=== PATIENT | male | born 1995 | race Caucasian/White ===

== ENCOUNTER 2019-10-23 11:42 | Emergency (ER) | payer OTHER, SELFPAY ==
[2019-10-23 11:54] VITALS: BP 150/88; PULSE 99; RESP 18; TEMP 36.6; O2SAT 97; BMI 3710.2
--- NOTE | 2019-10-23 12:04 | XRR_ITS ---
PROCEDURE INFORMATION: Exam: XR Chest, 1 View Exam date and time: 10/23/2019 12:25 PM Age: 24 years old Clinical indication: Shortness of breath; Additional info: SOB TECHNIQUE: Imaging protocol: XR of the chest Views: 1 view. COMPARISON: CT chest w con* [id number] 09/17/2018 8:46 AM FINDINGS: Lungs: Hyperinflation without acute airspace disease. Pleural space: No pleural effusion. Heart/Mediastinum: No cardiomegaly. Bones/joints: Unremarkable. XR/XR chest 1V portable [id number] IMPRESSION: No acute airspace or pleural disease.
--- NOTE | 2019-10-23 12:05 | ED_ITS ---
HPI - General Adult General: Chief complaint: Shortness of Breath/Dyspnea Stated complaint: SOB AND HAS HAD FEVER Time Seen by Provider: 10/23/19 11:51 History of Present Illness: HPI narrative: Presents with same day just did not feel good. Said he has had some nausea vomiting and chills. Denies fever does have some muscle aches. Says he felt like he has some shortness of breath. No known cold exposure. Patient is a known opiate abuser and states that he has been abusing opiates plus substance that is herb called Stanley I believe that gives opiate like effects. Patient has been in and out of rehab. Denies other problems. Patient states he wants tested for STD denies having unprotected sex but he said he has had sex with people who has had STDs in the past denies any IV drug usage. Patient denies any homicidal or suicidal ideations denies d epression Onset (ago): day(s) Associated symptoms: Reports dyspnea, malaise, nausea and vomiting; Deny chest pain, headache(s) or rash Review of Systems Const: Reports: malaise Eyes: Denies: change in vision or blurry vision ENMT: Denies: throat pain or nasal congestion Card: Denies: chest pain or dyspnea on exertion Resp: Reports: dyspnea GI: Reports: nausea and vomiting : Denies: difficulty urinating Musc: Denies: extremity pain Skin/Breast: Denies: rash Neuro: Denies: headache(s) Psych: Denies: anxiety or depression Emiliano/Lymph: Denies: easy bruising Physical Exam Const: COMMON NORMALS: no acute distress, average body habitus and patient oriented x3 HENMT: COMMON NORMALS: normocephalic HEAD & SCALP: normal to inspection and normocephalic FACE & SINUS: normal facial exam Eye: COMMON NORMALS: conjunctivae normal GENERAL EYE: appearance normal, both eyes and all related structures CONJUNCTIVA: Yes conjunctivae normal Neck/C-Spine: COMMON NORMALS: no JVD Chest: COMMONS NORMALS: normal inspection of the chest Resp: COMMON NORMALS: normal respiratory effort and clear to auscultation bilaterally AUSCULTATION: clear to auscultation bilaterally Cardio: COMMON NORMALS: no JVD, regular rate and regular rhythm RATE: regular rate RHYTHM: regular rhythm GI: COMMON NORMALS: Normal to inspection, nondistended, normoactive bowel sounds present Extremity: COMMON NORMALS: normal to inspection and full ROM Neuro: COMMON NORMALS: patient oriented x3 Course Vital Signs: Vital signs: Vital Signs Temperature 97.9 F 10/23/19 11:54 Pulse Rate 101 H 10/23/19 13:07 Respiratory Rate 14 10/23/19 13:07 Blood Pressure 126/73 10/23/19 13:07 Pulse Oximetry 100 10/23/19 13:07 MDM - General Adult MDM Narrative: Medical decision making narrative: I spent a long time in room talking with patient and the mother both. Mother is wanting patient going to rehab or detox facility patient adamantly refuses at this point. Mom states that she wants him to have some help. I tried to facilitate him wanting going to go to treatment facility but he denies any admission anywhere presently. Said he is going home and and will take his herbal thing which helps relieve the withdrawal symptoms from the opiates. Patient aware that he needs to drink plenty of fluids and get rehydrated and stay off opiates seek help again patient denies any homicidal or suicidal ideations. Offered to help in what assistance I had available to me Lab Data: Labs: Lab Results 10/23/19 10/23/19 Range/Units 12:15 12:15 WBC 14.6 H (4.0-10.0) 10^3/ uL RBC 5.57 H (4.1-5.3) 10^6/u L Hgb 16.4 (11.7-16.6) g/dL Hct 48.5 (42.0-52.0) % MCV 87.1 (80-94) fL MCH 29.4 (28.0-34.0) pg MCHC 33.8 (30.0-36.0) g/dL RDW 12.1 (12.1-15.1) % Plt Count 310 (130-400) 10^3/c mm MPV 9.3 (7.4-10.4) fL Neut % (Auto) 89.4 % Lymph % (Auto) 3.2 % [place] % (Auto) 6.9 % Eos % (Auto) 0.0 % Baso % (Auto) 0.1 % Neut # (Auto) 13.04 H (1.8-7.7) 10^3/u L Lymph # (Auto) 0.5 L (0.8-4.8) 10^3/u L [place] # (Auto) 1.0 H (0.2-0.9) 10^3/u L Eos # (Auto) 0.0 (0.0-0.8) 10^3/u L Baso # (Auto) 0.0 (0.0-0.1) 10^3/u L Nucleated RBC % (a uto) 0 % Nucleated RBCs # 0.0 /100WBC Sodium 140 (136-145) mmol/L Potassium 4.1 (3.5-5.1) mmol/L Chloride 103 (98-107) mmol/L Carbon Dioxide 22 (22-29) mmol/L Anion Gap 19.1 H (5-19) BUN 13 (6-20) mg/dL Creatinine 0.8 (0.7-1.2) mg/dL GFR Calculation 119.8 (90-130) mL/min Glucose 162 H (65-115) mg/dL Calculated Osmolal ity 290 (285-295) mOsm/k g Calcium 8.4 L (8.5-10.5) mg/dL Total Bilirubin 0.5 (0.15-1.2) mg/dL AST 13 (0-40) U/L ALT 14 (0-41) U/L Alkaline Phosphata se 67 (40-130) IU/L Total Protein 7.4 (6.6-8.7) g/dL Albumin 4.4 (3.5-5.2) g/dL Globulin 3.0 (1.3-4.6) g/dL Discharge Plan Discharge Patient Disposition: Home Clinical Impression: Gastroenteritis, Opiate abuse, continuous, Abuse of herbal medicine Condition: Stable Prescriptions: New Zofran 4 mg tablet 4 mg PO Q8H PRN (Reason: nausea and vomiting) 2 Days Qty: 4 RF: 0 Discharge Orders: Discharge Order (Routine); Ordered 10/23/19 Ordered By: Isac Soni Discharge Diet: Usual diet Discharge Activity: Increase activity as tolerated Patient Instructions: Gastroenteritis (ED), Polysubstance Abuse (ED) Activity Restrictions/Additional Instructions: Follow-up with medical provider as directed. Take medications as prescribed. Return to the ER or your medical provider if condition worsens. Please read and understand discharge instructions. If any questions ask please. Follow back up medical clinic of choice if symptoms persist. Think about going back to rehab for opiate abuse. Rehydrate drink plenty of fluids. Coding Level of Care Code ED Campaign Consultant for Kristopher Fwtosha Exam Comprehensive
[2019-10-23 12:22] LABS: Basophils % 0.1 %; Hematocrit 48.5 % (42.0-52.0); Hemoglobin 16.4 g/dL (11.7-16.6); Lymphocytes # 0.5 10^3/uL (0.8-4.8); Lymphocytes % 3.2 %; Mean Corpuscular HGB Conc 33.8 g/dL (30.0-36.0); Mean Corpuscular Hemoglobin 29.4 pg (28.0-34.0); Mean Corpuscular Volume 87.1 fL (80-94); Mean Platelet Volume 9.3 fL (7.4-10.4); Monocytes % 6.9 %; Neutrophils # 13.04 10^3/uL (1.8-7.7); Neutrophils % 89.4 %; Nucleated Red Blood Cells % 0 %; Platelet Count 310 10^3/cmm (130-400); Red Blood Count 5.57 10^6/uL (4.1-5.3); Red Cell Distribution Width 12.1 % (12.1-15.1); White Blood Count 14.6 10^3/uL (4.0-10.0)
[2019-10-23 12:45] LABS: Alanine Aminotransferase 14 U/L (0-41); Albumin Level 4.4 g/dL (3.5-5.2); Alkaline Phosphatase 67 IU/L (40-130); Anion Gap 19.1 (5-19); Aspartate Amino Transferase 13 U/L (0-40); Blood Urea Nitrogen 13 mg/dL (6-20); Calcium 8.4 mg/dL (8.5-10.5); Carbon Dioxide 22 mmol/L (22-29); Chloride 103 mmol/L (98-107); Glomerular Filtration Rate 119.8 mL/min (90-130); Glucose 162 mg/dL (65-115); Osmolality Calculated 290 mOsm/kg (285-295); Potassium 4.1 mmol/L (3.5-5.1); Sodium 140 mmol/L (136-145); Total Bilirubin 0.5 mg/dL (0.15-1.2); Total Protein 7.4 g/dL (6.6-8.7)
[2019-10-23 12:48] VITALS: BP 143/79; PULSE 88; RESP 14; O2SAT 96
[2019-10-23 13:07] VITALS: BP 126/73; PULSE 101; RESP 14; O2SAT 100
[2019-10-23] MEDS: ondansetron 4 MG Tablet PO (13:50)
[2019-10-23 14:00] LABS: Add Urine Microscopic? NO
[2019-10-23 14:07] LABS: Urine Appearance Clear (CLEAR); Urine Color Yellow (Yellow); pH Urine 5 (5-7)
[2019-10-23 14:08] LABS: Bilirubin Urine 1+ (NEGATIVE); Blood Urine Neg (Negative); Glucose Urine UA Norm (Normal); Ketones Urine 1+ (Negative); Leukocyte Esterase Urine Negative (Negative); Nitrate Urine Negative (Negative); Protein Urine Neg (Negative); Urobilinogen Urine Neg (Negative)
[2019-10-23 14:15] VITALS: BP 124/64; PULSE 97; RESP 14; O2SAT 99
[2019-10-24 15:47] LABS: Quest SARS-CoV-2 RNA NOT DETECTED (NOT DETECTED)
--- NOTE | 2019-10-24 16:12 | PC.NURSE ---
Pt called and notified of negative COVID test.
== END 2019-10-23 14:17 | disposition home or self-care (01) ==
PROVIDERS: Emergency Provider Nurse Practitioner Family
DX: K52.9 Noninfective gastroenteritis and colitis, unspecified (principal); F11.10 Opioid abuse, uncomplicated; F55.1 Abuse of herbal or folk remedies
CPT/HCPCS: 12345; 36415; 71045; 80053; 81003; 85025; 87491; 87591; 87635; 99282; 99283; Q0162

== ENCOUNTER 2020-10-01 13:06 | Emergency (ER) | payer SELFPAY ==
[2020-10-01 13:09] VITALS: BP 129/83; PULSE 75; RESP 18; TEMP 36.4; O2SAT 94; BMI 25.7
--- NOTE | 2020-10-01 13:21 | PC.NURSE ---
pt states 'hes an idiot'
--- NOTE | 2020-10-01 13:33 | W.ED.EYEPROB ---
HPI - Eye Problem General: Chief complaint: Eye Problems Stated complaint: FB IN RIGHT EYE Time Seen by Provider: 10/01/20 13:09 History of Present Illness: HPI Narrative: Patient thinks contact might be in right eye still. Patient says he just feels funky today. Says I was fine yesterday. chief complaint: eye pain and eye redness Onset (ago): hour(s) Onset description: sudden Duration: constant and progressively worsening Location: right eye Eye Symptoms: burning, redness, discharge and photophobia Associated symptoms: Reports no associated symptoms; Denies fever(s), headache(s), nausea or vomiting Treatments Prior to Arrival: none Review of Systems Const: Denies: fever(s), chills or body aches Eyes: Reports: photophobia, eye discomfort, eye discharge and eye redness; Denies: change in vision or blurry vision ENMT: Denies: throat pain or nasal congestion Card: Denies: chest pain or dyspnea on exertion Resp: Denies: dyspnea, productive cough or non-productive cough GI: Denies: abdominal pain, nausea or vomiting : Denies: difficulty urinating Musc: Denies: extremity pain Skin/Breast: Denies: rash Neuro: Denies: headache(s) Psych: Denies: anxiety or depression Emiliano/Lymph: Denies: easy bruising PFSH ED PFSH: Social History (Updated 05/02/20 @ 16:34 by Kenia Spangler LPN) Smoking and tobacco status: never smoked Physical Exam Const: GENERAL APPEARANCE: cooperative Eye: CONJUNCTIVA: Yes conjunctival abnormal positive right conjunctival injection SCLERA: scleral abnormal Laterality of scleral abnormality: positive right scleral injection CORNEA: Yes other (Swelling about the cornea) DIRECT OPHTHALMOSCOPY: Yes photophobia Neck/C-Spine: COMMON NORMALS: full ROM Cardio: COMMON NORMALS: regular rate and regular rhythm RATE: regular rate RHYTHM: regular rhythm Psych: COMMON NORMALS: mental status grossly normal Course Vital Signs: Vital signs: Vital Signs Temperature 97.6 F 10/01/20 13:09 Pulse Rate 75 10/01/20 13:09 Respiratory Rate 18 10/01/20 13:09 Blood Pressure 129/83 10/01/20 13:09 Pulse Oximetry 94 10/01/20 13:09 Discharge Plan Discharge Patient Disposition: Home Clinical Impression: Bacterial conjunctivitis Condition: Stable Prescriptions: New gentamicin 0.3 % (3 mg/gram) ointment 1 applic ophthalmic (eye) TID 5 Days Qty: 3.5 RF: 0 No Action ondansetron 4 mg tablet,disintegrating 4 mg PO Q8H PRN (Reason: nausea and vomiting) Qty: 10 RF: 0 Discharge Orders: Discharge ED (Routine); Ordered 10/01/20 Ordered By: Isac Soni Discharge Diet: Usual diet Discharge Activity: Resume usual activity Patient Instructions: Conjunctivitis (ED) Activity Restrictions/Additional Instructions: Use medicine as directed. Follow-up with eye doctor tomorrow if no significant improvement. Make sure you get rid of your contact solution and get a new case change out contacts. Coding Level of Care Code ED Regulatory Services Consultant for Kristopher Singer
[2020-10-01 14:08] VITALS: BP 126/61; PULSE 76; RESP 18
== END 2020-10-01 14:00 | disposition home or self-care (01) ==
PROVIDERS: Emergency Provider Nurse Practitioner Family
DX: H10.9 Unspecified conjunctivitis (principal)
CPT/HCPCS: 99281

== ENCOUNTER 2022-09-10 14:10 | Emergency (ER) | payer SELFPAY ==
[2022-09-10] VITALS (12 sets, daily range): BP systolic 124–146; BP diastolic 66–94; PULSE 73–95; RESP 16; TEMP 37.4; O2SAT 91–98; BMI 24.4
--- NOTE | 2022-09-10 15:11 | ED_ITS ---
HPI - Neck Pain/Injury General: Chief Complaint: Neck Pain/Injury Stated Complaint: SOB Stiff body Time Seen by Provider: 09/10/22 14:57 History of Present Illness: 27-year-old male brought to emergency room by dad due to sore throat, drooling and chills for the past 2 days. Described the pain as throbbing sensation with severity of 8 out of 10 mostly around the throat. Has any sick contacts or recent foreign travel. Patient unable to drink or eat within the past 2 days due to pain. Denies any cough, coughing up blood or vomiting. No known sick contacts or recent foreign travel. Review of Systems General: Reports: 10 or more systems reviewed and unremarkable except in HPI and below Const: Reports: fever(s) and chills ENMT: Reports: uvular edema, enlarged tonsils and odynophagia; Denies: swelling of lips/tongue, dental pain, nasal obstruction, epistaxis or post nasal drip Resp: Denies: dyspnea, productive cough, non-productive cough, wheezing, stridor, pain on inspiration or chest congestion All/Imm: Denies: urticaria, throat swelling, tongue swelling, facial swelling, seasonal rhinorrhea or food intolerance PFSH ED PFSH: Social History (Updated 05/02/20 @ 16:34 by Kenia Spangler LPN) Smoking and tobacco status: never smoked Substance/Drug Use: current Physical Exam HENMT: COMMON NORMALS: normocephalic and atraumatic HEAD & SCALP: normal to inspection, normocephalic and atraumatic; no abrasion MOUTH: tongue normal, drooling, malodorous breath, muffled voice and Abnormal oral and palatal mucosa present; no trismus and no restricted motion THROAT: uvula midline, abnormal tonsil, posterior oropharynx abnormal and uvular edema; no postnasal drainage Neck/C-Spine: COMMON NORMALS: full ROM, no lymphadenopathy, supple, no meni ngeal signs, no JVD, Thyroid normal and No carotid bruits GENERAL: Yes normal visual inspection THYROID: Thyroid normal Lymph: LYMPHATIC: no lymphadenopathy noted Chest: COMMONS NORMALS: normal inspection of the chest, normal palpation of entire chest wall, normal inspection of the breasts and normal palpation of the breasts Breast/axilla inspection: Yes normal inspection of the breasts BREAST/AXILLA PALPATION: Yes normal palpation of the breasts Resp: COMMON NORMALS: normal respiratory effort, No retractions, No use of accessory muscles, clear to auscultation bilaterally and percussion normal AUSCULTATION: clear to auscultation bilaterally PERCUSSION: percussion normal Cardio: COMMON NORMALS: no JVD, regular rate, regular rhythm, S1 normal heart sound present, S2 normal heart sound present, No gallops present (Cardio), No clicks present (Cardio), No murmurs present (Cardio), No rub (Cardio) and Peripheral pulses 2+ throughout RATE: regular rate RHYTHM: regular rhythm HEART SOUNDS: S1 normal heart sound present and S2 normal heart sound present PERIPHERAL PULSES: Peripheral pulses 2+ throughout GI: COMMON NORMALS: Normal to inspection, nondistended, normoactive bowel sounds present, Soft to palpation, non-tender, No hepatosplenomegaly present, no masses and no bruits PALPATION: Yes Soft to palpation and Yes No h epatosplenomegaly present Neuro: MENINGEAL SIGNS: Yes no meningeal signs Skin: COMMON NORMALS: no rashes or lesions noted, no wounds, turgor normal, no jaundice, no petechiae and no mottling GENERAL SKIN EXAM: no rashes or lesions noted and turgor normal Course Reevaluation(s): Reevaluation #3: Upon reassessment patient appears to be comfortable without any acute distress. Patient's voice did improve slightly. And is currently not drooling. Patient with stable vitals. Consultations: Consultation #1: Called me to [facility] in [place]. I spoke with transfer center team and told me she will connect with the ENT. Consultation #2: 5:40 PM discussed patient with ER doctor for ER to ER transfer. Consultation #3: Discussed CT finding with the radiologist Vital Signs: Vital signs: Vital Signs Temperature 99.4 F 09/10/22 14:14 Pulse Rate 80 09/10/22 20:00 Respiratory Rate 16 09/10/22 20:00 Blood Pressure 129/83 09/10/22 20:00 Pulse Oximetry 93 09/10/22 20:00 Oxygen Delivery Me thod Room Air 09/10/22 18:30 MDM - Neck Pain/Injury Medical Decision Making Made comfortable emergency room. Patient immediately had blood work done including CBC, CMP, CT scan. She was given IV fluid, IV antibiotics and IV emilia roid. Given IV pain medication as well. Was CT finding with patient and father at bedside. Jose Rafael patient with physician at [facility] in [place]. Remained stable emergency room no acute distress. Differential Diagnosis Likely strain of neck muscle (Tonsillitis, peritonsillar abscess, pharyngitis, uveitis ) Lab Data 09/10/22 15:51 09/10/22 15:[address] 09/10/22 15:11 IMPRESSION: 1. Ill-defined abscess involves the right oropharyngeal and right peritonsillar soft tissues in this patient with a history of prior tonsillectomy. There is adjacent soft tissue cellulitis. 2. Complex fluid density is present in the retropharyngeal soft tissue concerning for retropharyngeal abscess. ADDENDUM: 09/10/22 [id number] CRITICAL RESULT: The study was personally discussed on the telephone with KIRIT Sarkar on 09/10/2022 4:52 PM CDT. The results were understood and acknowledged. Laboratory Results WBC 17.6 10^3/uL (4.0-10.0) H 09/10/22 15:51 RBC 5.67 10^6/uL (4.1-5.3) H 09/10/22 15:51 Hgb 16.3 g/dL (11.7-16.6) 09/10/22 15:51 Hct 48.3 % (42.0-52.0) 09/10/22 15:51 MCV 85.2 fl (80-94) 09/10/22 15:51 MCH 28.7 pg (28.0-34.0) 09/10/22 15:51 MCHC 33.7 g/dL (30.0-36.0) 09/10/22 15:51 RDW 12.1 % (12.1-15.1) 09/10/22 15:51 Plt Count 304 10^3/cmm (130-400) 09/10/22 15:51 MPV 9.9 fL (7.4-10.4) 09/10/22 15:51 Neut % (Auto) 84.3 % 09/10/22 15:51 Lymph % (Auto) 6.9 % 09/10/22 15:51 [place] % (Auto) 8.2 % 09/10/22 15:51 Eos % (Auto) 0.1 % 09/10/22 15:51 Baso % (Auto) 0.2 % 09/10/22 15:51 Neut # (Auto) 14.81 10^3/uL (1.8-7.7) H 09/10/22 15:51 Lymph # (Auto) 1.2 10^3/uL (0.8-4.8) 09/10/22 15:51 [place] # (Auto) 1.4 10^3/uL (0.2-0.9) H 09/10/22 15:51 Eos # (Auto) 0.0 10^3/uL (0.0-0.8) 09/10/22 15:51 Baso # (Auto) 0.0 10^3/uL (0.0-0.1) 09/10/22 15:51 Nucleated RBC % (auto) 0 % 09/10/22 15:51 Nucleated RBCs # 0.0 /100WBC 09/10/22 15:51 Sodium 134 mmol/L (136-145) L 09/10/22 15:51 Potassium 4.2 mmol/L (3.5-5.1) 09/10/22 15:51 Chloride 91 mmol/L (98-107) L 09/10/22 15:51 Carbon Dioxide 26 mmol/L (22-29) 09/10/22 15:51 Anion Gap 21.2 (5-19) H 09/10/22 15:51 BUN 8 mg/dL (6-20) 09/10/22 15:51 Creatinine 0.8 mg/dL (0.7-1.2) 09/10/22 15:51 GFR Calculation 116.9 mL/min (90-130) 09/10/22 15:51 Glucose 99 mg/dL (65-115) 09/10/22 15:51 Calculated Osmolality 276 mOsm/kg (285-295) L 09/10/22 15:51 Calcium 9.4 mg/dL (8.5-10.5) 09/10/22 15:51 Total Bilirubin 0.7 mg/dL (0.15-1.2) 09/10/22 15:51 AST 13 U/L (0-40) 09/10/22 15:51 ALT 8 U/L (0-41) 09/10/22 15:51 Alkaline Phosphatase 115 U/L (40-130) 09/10/22 15:51 Total Protein 8.2 g/dL (6.6-8.7) 09/10/22 15:51 Albumin 4.1 g/dL (3.5-5.2) 09/10/22 15:51 Globulin 4.1 g/dL (1.3-4.6) 09/10/22 15:51 Group A Strep Rapid Negative (Negative) 09/10/22 15:56 Critical Care Time Critical Care Time: Critical Care Time: Yes Total Critical Care Time: 45 Attestation: Time spent discussing patient with the radiologist, ER physician at the other hospital. When reviewing CAT scan and labs. Spent reevaluating patient on multiple episodes after medication and treatment. Spent discussing patient with family. Discharge Plan Discharge Patient Disposition: Transfer to ED Clinical Impression: Abscess, peritonsillar, Abscess, retropharyngeal, Leukocytosis Condition: Stable Prescriptions: No Action No Known Home Medications Referrals: Clinton Lennon MD [Primary Care Provider] - Coding Level of Care Code ED Automation Manager for Kristopher Singer
--- NOTE | 2022-09-10 15:11 | CTR_ITS ---
PROCEDURE INFORMATION: Exam: CT Neck With Contrast Exam date and time: 09/10/2022 4:03 PM Age: 27 years old Clinical indication: Abscess, tonsil; Throat pain; Prior surgery; Surgery date: 6+ months; Surgery type: Tonsillectomy age 13; Patient HX: Tonsillectomy @ age 13; Additional info: Tonsilarr abscess TECHNIQUE: Imaging protocol: Computed tomography of the neck with contrast. Radiation optimization: All CT scans at this facility use at least one of these dose optimization techniques: automated exposure control; mA and/or kV adjustment per patient size (includes targeted exams where dose is matched to clinical indication); or iterative reconstruction. Contrast material: OMNI 350; Contrast volume: 80 ml; Contrast route: INTRAVENOUS (IV); REPORTING DATA: Count of CT and Cardiac NM exams in prior 12 months: This patient has received 0 known CTs and 0 known cardiac nuclear medicine studies in the 12 months prior to the current study. COMPARISON: CT chest w con* [id number] 09/17/2018 8:46 AM RADIATION DOSE METRICS: Total DLP (mGy-cm): 290 FINDINGS: Pharynx: There is heterogeneous density in the right nasopharyngeal, oropharyngeal, and peritonsillar soft tissues in this patient with a history of prior tonsillectomy. An ill-defined peripherally enhancing collection consistent with abscess is present in the right oropharyngeal and peritonsillar soft tissues measuring 2.3 x 2.7 cm in AP/craniocaudad dimensions consistent with an abscess formation. There is edema in the adjacent soft tissues with basement of the adjacent fat planes. Larynx: Unremarkable. Epiglottis is normal. Prevertebral and retropharyngeal spaces: There is complex fluid density in the retropharyngeal soft tissues Salivary glands: Normal. Glands are normal in size. Thyroid: Normal. No enlarged or calcified nodules. Lymph nodes: Right level 2 through 6 lymphadenopathy. Trachea: Visualized trachea is unremarkable. Lungs: There are ground-glass opacities partially visualized at the right lung apex. Bones/joints: Unremarkable. No acute fracture. Soft tissues: See Pharynx finding. There is edema in the subcutaneous soft tissues of the cervical spine and upper thorax. CT/CT neck w con* [id number] IMPRESSION: 1. Ill-defined abscess involves the right oropharyngeal and right peritonsillar soft tissues in this patient with a history of prior tonsillectomy. There is adjacent soft tissue cellulitis. 2. Complex fluid density is present in the retropharyngeal soft tissue concerning for retropharyngeal abscess.
[2022-09-10] MEDS: sodium chloride 0.9% 1,000 ML 999 ML IV ×2 (15:49→17:19)
[2022-09-10] MEDS: dexamethasone 10 mg/mL INJ IVP (15:50)
[2022-09-10] MEDS: clindamycin 600 MG/50 ML PREMIX 100 MG IV ×2 (15:50→23:01)
[2022-09-10] MEDS: morphine 4 mg/mL SDV 1 mL IVP ×2 (15:50→23:00)
[2022-09-10] MEDS: ondansetron 2 mg/ML SDV 2 mL 4 MG IVP (15:50)
[2022-09-10 16:22] LABS: Basophils % 0.2 %; Eosinophils % 0.1 %; Hematocrit 48.3 % (42.0-52.0); Hemoglobin 16.3 g/dL (11.7-16.6); Lymphocytes # 1.2 10^3/uL (0.8-4.8); Lymphocytes % 6.9 %; Mean Corpuscular HGB Conc 33.7 g/dL (30.0-36.0); Mean Corpuscular Hemoglobin 28.7 pg (28.0-34.0); Mean Corpuscular Volume 85.2 fl (80-94); Mean Platelet Volume 9.9 fL (7.4-10.4); Monocytes # 1.4 10^3/uL (0.2-0.9); Monocytes % 8.2 %; Neutrophils # 14.81 10^3/uL (1.8-7.7); Neutrophils % 84.3 %; Nucleated Red Blood Cells % 0 %; Platelet Count 304 10^3/cmm (130-400); Red Blood Count 5.67 10^6/uL (4.1-5.3); Red Cell Distribution Width 12.1 % (12.1-15.1); White Blood Count 17.6 10^3/uL (4.0-10.0)
[2022-09-10 16:37] LABS: Rapid Strep A Test Negative (Negative)
[2022-09-10 16:43] LABS: Alanine Aminotransferase 8 U/L (0-41); Albumin Level 4.1 g/dL (3.5-5.2); Alkaline Phosphatase 115 U/L (40-130); Aspartate Amino Transferase 13 U/L (0-40); Blood Urea Nitrogen 8 mg/dL (6-20); Calcium 9.4 mg/dL (8.5-10.5); Carbon Dioxide 26 mmol/L (22-29); Chloride 91 mmol/L (98-107); Creatinine Clr Calc Pharmacy 156.7872; Globulin 4.1 g/dL (1.3-4.6); Glomerular Filtration Rate 116.9 mL/min (90-130); Glucose 99 mg/dL (65-115); Osmolality Calculated 276 mOsm/kg (285-295); Sodium 134 mmol/L (136-145); Total Bilirubin 0.7 mg/dL (0.15-1.2); Total Protein 8.2 g/dL (6.6-8.7)
[2022-09-10 16:59] LABS: Anion Gap 21.2 (5-19)
[2022-09-10 17:00] LABS: Potassium 4.2 mmol/L (3.5-5.1)
[2022-09-10] MEDS: HYDROmorphone 1 mg/mL INJ 1 mL 0.5 MG IVP (17:30)
--- NOTE | 2022-09-10 19:24 | PC.NURSE ---
RN into room to assess pt after shift change. At this time, pt is asleep in the bed without respiratory difficulty. Will continue to monitor.
[2022-09-10] MEDS: sodium chloride 0.9% 1,000 ML 125 ML IV (23:01)
== END 2022-09-10 23:33 ==
PROVIDERS: Emergency Provider Family Medicine; PCP Family Medicine
DX: J36 Peritonsillar abscess (principal); D72.829 Elevated white blood cell count, unspecified
CPT/HCPCS: 70491; 80053; 85025; 87081; 87880; 96365; 96366; 96375; 96376; 99285; J1100; J1170; J2270; J2405; J3490; J7030; Q9967

== ENCOUNTER 2022-11-15 08:59 | Emergency (ER) | payer SELFPAY ==
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
[2022-11-15 09:04] VITALS: BP 123/96; PULSE 71; RESP 20; TEMP 36.7; O2SAT 98; BMI 23.7
== END 2022-11-15 09:59 | disposition home or self-care (01) ==
PROVIDERS: Emergency Provider Physician Assistant; PCP Family Medicine
DX: F41.9 Anxiety disorder, unspecified (principal)
CPT/HCPCS: 99283

== ENCOUNTER 2022-11-21 21:12 | Emergency (ER) | payer SELFPAY ==
[2022-11-21 21:19] VITALS: BMI 24.8
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
--- NOTE | 2022-11-21 21:48 | PC.NURSE ---
Called by [facility], pt requested to speak with RN. Patient stated I'm not thinking about hurting myself, I just didn't want to be arrested. Do you think it would look better if I stayed in the hospital? I advised the patient that I am not a audio visual facilities engineer, but judges typically favor people when they do the right thing . Pt agreed to stay in hospital if that was the physicians wishes.
== END 2022-11-21 22:02 | disposition left against medical advice (07) ==
PROVIDERS: Emergency Provider Emergency Medicine
DX: Z04.1 Encounter for examination and observation following transport accident (principal); V49.9XXA Car occupant (driver) (passenger) injured in unspecified traffic accident, initial encounter; Z53.21 Procedure and treatment not carried out due to patient leaving prior to being seen by health care provider
CPT/HCPCS: 99283

== ENCOUNTER 2024-01-10 16:35 | Emergency (ER) | payer SELFPAY ==
[2024-01-10 16:43] VITALS: BP 134/78; PULSE 83; RESP 18; TEMP 36.9; O2SAT 94; BMI 25.7
--- NOTE | 2024-01-10 17:06 | W.ED.PSYCHS ---
HPI - Psych General: Chief Complaint: Psychiatric Symptoms Stated Complaint: passed out (possible drug overdoes) mhe Time Seen by Provider: 01/10/24 16:41 Source: patient and family Mode of arrival: ambulatory Limitations: no limitations History of Present Illness: 28-year-old male is here with family the patient has a history of drug abuse he states he abuses kratom also uses meth drinks alcohol and found him passed out today and wanted to have him checked out medically. Patient is awake alert answering questions he does admit to drug abuse. He denies being suicidal or homicidal. Associated symptoms: Deny suicidal ideation Related Data Home Medications Medication Instructions Recorded Confirmed No Known Home Medications 09/10/22 08/20/23 Allergies Allergy/AdvReac Type Severity Reaction Status Date / Time No Known Allergies Allergy Verified 08/20/23 18:33 Review of Systems Const: Denies: fever(s), chills, body aches or change in appetite Eyes: Denies: blurry vision or eye discomfort ENMT: Denies: throat pain or dental pain Card: Denies: chest pain Resp: Denies: dyspnea GI: Denies: abdominal pain, nausea, vomiting or diarrhea Musc: Denies: neck pain or back pain Skin/Breast: Denies: rash Neuro: Denies: headache(s) Psych: Denies: suicidal ideation [facility] ED PFSH: Social History Smoking and tobacco/nicotine status: never used tobacco/nicotine Substance/Drug Use: current Physical Exam Const: COMMON NORMALS: no acute distress and patient oriented x3 HENMT: COMMON NORMALS: normocephalic and atraumatic HEAD & SCALP: normocephalic and atraumatic Eye: COMMON NORMALS: conjunctivae normal CONJUNCTIVA: Yes conjunctivae normal Neck/C-Spine: COMMON NORMALS: full ROM and supple Chest: COMMONS NORMALS: normal inspection of the chest Resp: COMMON NORMALS: normal respiratory effort Cardio: COMMON NORMALS: regular rate RATE: regular rate Extremity: COMMON NORMALS: normal to inspection and full ROM Neuro: COMMON NORMALS: patient oriented x3, moves all extremities and no focal motor deficits Psych: COMMON NORMALS: mental status grossly normal, Normal thought process present and cooperative THOUGHT PROCESS: Normal thought process present Skin: COMMON NORMALS: no rashes or lesions noted and no wounds GENERAL SKIN EXAM: no rashes or lesions noted Course Vital Signs: Vital signs: Vital Signs Temperature 98.4 F 01/10/24 16:43 Pulse Rate 83 01/10/24 16:43 Respiratory Rate 18 01/10/24 16:43 Blood Pressure 134/78 01/10/24 16:43 Pulse Oximetry 94 01/10/24 16:43 Oxygen Delivery Me thod Room Air 01/10/24 16:43 MDM - Psych Medical Decision Making Patient presents here after passing out likely from alcohol abuse he also has a history of drug abuse as well he is not suicidal or homicidal patient now is wanting to leave he is on a wait for his and labs he is ambulatory answer my questions appropriately and not able to hold him against his will we will discharge him at this time Medical Records I reviewed the patient's medical records. Lab Data I reviewed the patient's lab results. 01/10/24 17:30 01/10/24 17:30 Laboratory Results WBC 7.26 10^3/uL (3.29-11.43) 01/10/24 17:30 RBC 5.24 10^6/uL (3.85-5.65) 01/10/24 17:30 Hgb 15.20 g/dL (11.27-16.99) 01/10/24 17:30 Hct 44.3 % (37-53) 01/10/24 17:30 MCV 84.5 fl (82-101) 01/10/24 17:30 MCH 29.0 pg (27-33) 01/10/24 17:30 MCHC 34.3 g/dL (30-55) 01/10/24 17:30 RDW 11.9 % (12.1-15.1) L 01/10/24 17:30 Plt Count 472 10^3/cmm (157-399) H 01/10/24 17:30 MPV 9.4 fL (7.4-10.4) 01/10/24 17:30 Neut % (Auto) 59.8 % 01/10/24 17:30 Lymph % (Auto) 29.9 % 01/10/24 17:30 Mccracken % (Auto) 8.7 % 01/10/24 17:30 Eos % (Auto) 1.2 % 01/10/24 17:30 Baso % (Auto) 0.3 % 01/10/24 17:30 Neut # (Auto) 4.34 10^3/uL (1.8-7.7) 01/10/24 17:30 Lymph # (Auto) 2.2 10^3/uL (0.8-4.8) 01/10/24 17:30 Mccracken # (Auto) 0.6 10^3/uL (0.2-0.9) 01/10/24 17:30 Eos # (Auto) 0.1 10^3/uL (0.0-0.8) 01/10/24 17:30 Baso # (Auto) 0.0 10^3/uL (0.0-0.1) 01/10/24 17:30 Nucleated RBC % (auto) 0 % 01/10/24 17:30 Nucleated RBCs # 0.0 /100WBC 01/10/24 17:30 XR interpretation done by ED provider, pending radiology final review Discharge Plan Discharge Patient Disposition: Home Clinical Impression: Drug use Condition: Stable Prescriptions: No Action No Known Home Medications Discharge Orders: Discharge ED (Routine); Ordered 01/10/24 Ordered By: Naomi Rogel Discharge Diet: Advance as tolerated Discharge Activity: Resume usual activity Patient Instructions: Polysubstance Use Disorder (ED) Coding Level of Care Code ED [employer] Specialist for Kristopher Singer
--- NOTE | 2024-01-10 17:40 | PC.NURSE ---
PT has taken off VS equipment.
[2024-01-10 17:45] LABS: Basophils % 0.3 %; Eosinophils # 0.1 10^3/uL (0.0-0.8); Eosinophils % 1.2 %; Hematocrit 44.3 % (37-53); Lymphocytes # 2.2 10^3/uL (0.8-4.8); Lymphocytes % 29.9 %; Mean Corpuscular HGB Conc 34.3 g/dL (30-55); Mean Corpuscular Volume 84.5 fl (82-101); Mean Platelet Volume 9.4 fL (7.4-10.4); Monocytes # 0.6 10^3/uL (0.2-0.9); Monocytes % 8.7 %; Neutrophils # 4.34 10^3/uL (1.8-7.7); Neutrophils % 59.8 %; Nucleated Red Blood Cells % 0 %; Platelet Count 472 10^3/cmm (157-399); Red Blood Count 5.24 10^6/uL (3.85-5.65); Red Cell Distribution Width 11.9 % (12.1-15.1); White Blood Count 7.26 10^3/uL (3.29-11.43)
--- NOTE | 2024-01-10 17:46 | PC.NURSE ---
pt having increased agitation wanting to leave. Dr. Rogel notified.
[2024-01-10 18:01] LABS: Acetaminophen < 5.0 ug/mL (10-30); Alanine Aminotransferase 36 U/L (0-41); Albumin Level 4.8 g/dL (3.5-5.2); Alcohol Level 158 mg/dL (0-10); Alkaline Phosphatase 69 U/L (40-130); Anion Gap 15.6 (5-19); Blood Urea Nitrogen 3 mg/dL (6-20); Calcium 9.7 mg/dL (8.5-10.5); Carbon Dioxide 29 mmol/L (22-29); Chloride 106 mmol/L (98-107); Creatinine Clr Calc Pharmacy 158.9714; Globulin 2.8 g/dL (1.3-4.6); Glucose 123 mg/dL (65-115); Osmolality Calculated 300 mOsm/kg (285-295); Potassium 4.6 mmol/L (3.5-5.1); Salicylate < 0.3 mg/dL (3-10); Sodium 146 mmol/L (136-145); Total Bilirubin 0.4 mg/dL (0.15-1.2); Total Protein 7.6 g/dL (6.6-8.7)
[2024-01-10 18:10] LABS: Aspartate Amino Transferase 51 U/L (0-40)
== END 2024-01-10 17:54 | disposition home or self-care (01) ==
PROVIDERS: Emergency Provider Emergency Medicine
DX: F19.90 Other psychoactive substance use, unspecified, uncomplicated (principal)
CPT/HCPCS: 80053; 80307; 85025; 99283

== ENCOUNTER 2024-01-12 18:01 | Emergency (ER) | payer SELFPAY ==
[2024-01-12 18:02] VITALS: BP 147/90; PULSE 98; RESP 18; TEMP 36.7; O2SAT 98; BMI 25.7
--- NOTE | 2024-01-12 18:09 | W.ED.OVERDOS ---
HPI - Overdose General: Chief Complaint: Overdose Stated Complaint: attempted OD Time Seen by Provider: 01/12/24 18:02 History of Present Illness: 28-year-old male who presents emergency room by ambulance from [facility] here in [place]. Apparently he took 7 Lyrica and 0.5 Xanax over the day today. He says he was thinking he was taking his Clomid which he takes for his testosterone. He says opiates are his drug of choice. He denies any homicidal or suicidal ideation. He says he told the people at the home that he had done this by mistake and they sent him to the emergency room. Related Data Home Medications Medication Instructions Recorded Confirmed No Known Home Medications 09/10/22 08/20/23 Allergies Allergy/AdvReac Type Severity Reaction Status Date / Time No Known Allergies Allergy Verified 08/20/23 18:33 Review of Systems Narrative: Constitutional symptoms: Negative except as documented in HPI. Skin symptoms: Negative except as documented in HPI. Eye symptoms: Negative except as documented in HPI. ENMT symptoms: Negative except as documented in HPI. Respiratory symptoms: Negative except as documented in HPI. Cardiovascular symptoms: Negative except as documented in HPI. Gastrointestinal symptoms: Negative except as documented in HPI. Genitourinary symptoms: Negative except as documented in HPI. Musculoskeletal symptoms: Negative except as documented in HPI. Neurologic symptoms: Negative except as documented in HPI. Psychiatric symptoms: Negative except as documented in HPI. Endocrine symptoms: Negative except as documented in HPI. [facility] ED PFSH: Social History Smoking and tobacco/nicotine status: never used tobacco/nicotine Substance/Drug Use: current Physical Exam Narrative: EXAM NARRATIVE: General: Alert, no acute distress. Skin: Warm, dry. Head: Normocephalic, atraumatic. Neck: Supple, trachea midline. Eye: Extraocular movements are intact. Ears, nose, mouth and throat: mucosa moist. Cardiovascular: Regular, Normal peripheral perfusion. Respiratory: Lungs are clear to auscultation, respirations are non-labored, breath sounds are equal, Symmetrical chest wall expansion. Gastrointestinal: Soft, Nontender, Non distended Musculoskeletal: Normal ROM, no deformity. Neurological: Alert and oriented, No focal neurological deficit observed. Psychiatric: Cooperative, denies any homicidal or suicidal ideation Course Vital Signs: Vital signs: Vital Signs Temperature 98.1 F 01/12/24 18:02 Pulse Rate 98 01/12/24 18:02 Respiratory Rate 18 01/12/24 18:02 Blood Pressure 147/90 01/12/24 18:02 Pulse Oximetry 98 01/12/24 18:02 Oxygen Delivery Me thod Room Air 01/12/24 18:02 MDM - Overdose Medical Decision Making Patient denies any homicidal or suicidal ideations. Basic lab work to clear medically. Workup: labwork, ekg ordered to evaluate the pathologies and to clear the patient medically prior to psychiatric admission Lab Review: Laboratory results were reviewed and interpreted by myself the emergency room physician. Lab review: - Medically cleared. - EKG shows no ischemic changes. - Blood alcohol level is negative, -Tylenol and salicylate levels are negative. - Drug screen is positive for amphetamines, marijuana and benzodiazepines - No signs of infection, urinalysis clear and white count is not elevated - No anemia. - BUN and creatinine are within normal limits. Consultation: Poison control was consulted. Assessment and plan: Accidental drug overdose Lab Data 01/12/24 18:20 01/12/24 18:20 Laboratory Results WBC 14.29 10^3/uL (3.29-11.43) H 01/12/24 18:20 RBC 4.99 10^6/uL (3.85-5.65) 01/12/24 18:20 Hgb 14.50 g/dL (11.27-16.99) 01/12/24 18:20 Hct 43.0 % (37-53) 01/12/24 18:20 MCV 86.2 fl (82-101) 01/12/24 18:20 MCH 29.1 pg (27-33) 01/12/24 18:20 MCHC 33.7 g/dL (30-55) 01/12/24 18:20 RDW 12.3 % (12.1-15.1) 01/12/24 18:20 Plt Count 479 10^3/cmm (157-399) H 01/12/24 18:20 MPV 9.4 fL (7.4-10.4) 01/12/24 18:20 Neut % (Auto) 66.8 % 01/12/24 18:20 Lymph % (Auto) 23.4 % 01/12/24 18:20 [place] % (Auto) 8.0 % 01/12/24 18:20 Eos % (Auto) 1.3 % 01/12/24 18:20 Baso % (Auto) 0.3 % 01/12/24 18:20 Neut # (Auto) 9.55 10^3/uL (1.8-7.7) H 01/12/24 18:20 Lymph # (Auto) 3.3 10^3/uL (0.8-4.8) 01/12/24 18:20 [place] # (Auto) 1.1 10^3/uL (0.2-0.9) H 01/12/24 18:20 Eos # (Auto) 0.2 10^3/uL (0.0-0.8) 01/12/24 18:20 Baso # (Auto) 0.0 10^3/uL (0.0-0.1) 01/12/24 18:20 Nucleated RBC % (auto) 0 % 01/12/24 18:20 Nucleated RBCs # 0.0 /100WBC 01/12/24 18:20 Sodium 140 mmol/L (136-145) 01/12/24 18:20 Potassium 4.0 mmol/L (3.5-5.1) 01/12/24 18:20 Chloride 101 mmol/L (98-107) 01/12/24 18:20 Carbon Dioxide 29 mmol/L (22-29) 01/12/24 18:20 Anion Gap 14.0 (5-19) 01/12/24 18:20 BUN 12 mg/dL (6-20) 01/12/24 18:20 Creatinine 0.9 mg/dL (0.7-1.2) 01/12/24 18:20 GFR Calculation 101.2 mL/min (90-130) 01/12/24 18:20 Glucose 94 mg/dL (65-115) 01/12/24 18:20 Calculated Osmolality 290 mOsm/kg (285-295) 01/12/24 18:20 Calcium 9.0 mg/dL (8.5-10.5) 01/12/24 18:20 Total Bilirubin 0.2 mg/dL (0.15-1.2) 01/12/24 18:20 AST 43 U/L (0-40) H 01/12/24 18:20 ALT 57 U/L (0-41) H 01/12/24 18:20 Alkaline Phosphatase 66 U/L (40-130) 01/12/24 18:20 Total Protein 7.3 g/dL (6.6-8.7) 01/12/24 18:20 Albumin 4.5 g/dL (3.5-5.2) 01/12/24 18: Globulin 2.8 g/dL (1.3-4.6) 01/12/24 18: TSH 1.80 uIU/mL (0.27-4.20) 01/12/24 18:20 Urine Color Yellow (Yellow) 01/12/24: Urine Appearance Clear (CLEAR) 01/12/24: Urine pH 5.5 (5-7) 01/12/24: Ur Specific [place] 1.028 (1.005-1.030) 01/12/24: Urine Protein Trace (Negative) A 01/12/24: Urine Glucose (UA) Negative (Normal) 01/12/24 19: Urine Ketones Negative (Negative) 01/12/24: Urine Blood Negative (Negative) 01/12/24: Urine Nitrate Negative (Negative) 01/12/24: Urine Bilirubin Negative (Negative) 01/12/24 19: Urine Urobilinogen 1.0 mg/dL (Negative) 01/12/24: Ur Leukocyte Esterase Negative (Negative) 01/12/24: Urine RBC 0-2 /hpf (0-2) 01/12/24 19: Urine WBC 0-5 /hpf (0-5) 01/12/24 19: Ur Squamous Epith Cells 0-5 /hpf (0-5) 01/12/24: Amorphous Sediment Not Reportable 01/12/24: Urine Bacteria None seen /hpf (NONE) 01/12/24: Hyaline Casts 1.65 /lpf 01/12/24 19: Salicylates < 0.3 mg/dL (3-10) L 01/12/24 18: Urine Opiates Screen Negative ng/mL (Negative) 01/12/24: Acetaminophen < 5.0 ug/mL (10-30) L 01/12/24 18:20 Ur Barbiturates Screen Negative ng/mL (Negative) 01/12/24 19:29 Ur Phencyclidine Scrn Negative ng/mL (Negative) 01/12/24 19:29 Ur Amphetamines Screen Positive ng/mL (Negative) H 01/12/24 19:29 U Benzodiazepines Scrn Positive ng/mL (Negative) H 01/12/24 19:29 Urine Cocaine Screen Negative ng/mL (Negative) 01/12/24 19:29 U Marijuana (THC) Screen Positive ng/mL (Negative) H 01/12/24 19:29 Ethyl Alcohol < 10 mg/dL (0-10) 01/12/24 18:20 No radiology studies performed this visit Discharge Plan Discharge Patient Disposition: Home Clinical Impression: Drug use, Accidental drug ingestion Condition: Stable Prescriptions: No Action No Known Home Medications Discharge Orders: Discharge ED (Routine); Ordered 01/12/24 Ordered By: Bethany Garcia Discharge Diet: Usual diet Discharge Activity: Resume usual activity Patient Instructions: Opioid Safety, Pain Management Activity Restrictions/Additional Instructions: Thank you for choosing [facility] for your healthcare needs today. Please realize this is an emergency room and that we are providing you with a medical screening exam and this may not be complete and all inclusive of all the testing and or work up that you may need to determine your ailment or severity of your illness. You have been screened and evaluated and felt safe for discharge. Health conditions do change or evolve sometimes and as such it is important that you follow up with your Primary Doctor to be re checked, 3-5 days is a general good time frame for follow up. You are always welcome to return to the ED for re assessment if your symptoms are worsening or you have new concerns Coding Level of Care Code ED Supervisor Nuclear Medicine for Kristopher Singer
--- NOTE | 2024-01-12 18:12 | ECG_ITS ---
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 Measurements Intervals [place] Rate: 92 P: 64 MI: 194 QRS: 57 QRSD: 130 T: 29 QT: 347 QTc: 431 Interpretive Statements SINUS RHYTHM POSSIBLE RIGHT VENTRICULAR CONDUCTION DELAY [RSR (QR) IN V1/V2] NONSPECIFIC T-WAVE ABNORMALITY Compared to ECG 07/08/2017 22:16:46 T-wave abnormality now present Intraventricular conduction delay no longer present Electronically Signed On 01-13-2024 10:20:26 HYDRAULIC BLOCKER by Nawaf Mendoza M.D. [email or web address]
--- NOTE | 2024-01-12 18:14 | PC.NURSE ---
PER POISON CONTROL NURSE SHERRIE RN, WOULD RECOMMEND CBC, CMP, UDS, AND SALICYLATE LEVEL. MONITOR FOR DRUNKEN LIKE STATE, DROWSINESS, N/V, TACHYCARDIA.
[2024-01-12 18:29] LABS: Basophils % 0.3 %; Eosinophils # 0.2 10^3/uL (0.0-0.8); Eosinophils % 1.3 %; Lymphocytes # 3.3 10^3/uL (0.8-4.8); Lymphocytes % 23.4 %; Mean Corpuscular HGB Conc 33.7 g/dL (30-55); Mean Corpuscular Hemoglobin 29.1 pg (27-33); Mean Corpuscular Volume 86.2 fl (82-101); Mean Platelet Volume 9.4 fL (7.4-10.4); Monocytes # 1.1 10^3/uL (0.2-0.9); Neutrophils # 9.55 10^3/uL (1.8-7.7); Neutrophils % 66.8 %; Nucleated Red Blood Cells % 0 %; Platelet Count 479 10^3/cmm (157-399); Red Blood Count 4.99 10^6/uL (3.85-5.65); Red Cell Distribution Width 12.3 % (12.1-15.1); White Blood Count 14.29 10^3/uL (3.29-11.43)
[2024-01-12 18:54] LABS: Alanine Aminotransferase 57 U/L (0-41); Albumin Level 4.5 g/dL (3.5-5.2); Alkaline Phosphatase 66 U/L (40-130); Aspartate Amino Transferase 43 U/L (0-40); Blood Urea Nitrogen 12 mg/dL (6-20); Carbon Dioxide 29 mmol/L (22-29); Chloride 101 mmol/L (98-107); Creatinine Clr Calc Pharmacy 141.3079; Globulin 2.8 g/dL (1.3-4.6); Glomerular Filtration Rate 101.2 mL/min (90-130); Glucose 94 mg/dL (65-115); Osmolality Calculated 290 mOsm/kg (285-295); Sodium 140 mmol/L (136-145); Total Bilirubin 0.2 mg/dL (0.15-1.2); Total Protein 7.3 g/dL (6.6-8.7)
[2024-01-12 18:56] LABS: Acetaminophen < 5.0 ug/mL (10-30); Alcohol Level < 10 mg/dL (0-10); Salicylate < 0.3 mg/dL (3-10)
[2024-01-12 19:54] LABS: Bilirubin Urine Negative (Negative); Blood Urine Negative (Negative); Glucose Urine UA Negative (Normal); Ketones Urine Negative (Negative); Leukocyte Esterase Urine Negative (Negative); Nitrate Urine Negative (Negative); Protein Urine Trace (Negative); Specific Gravity, Urine 1.028 (1.005-1.030); Urine Appearance Clear (CLEAR); Urine Color Yellow (Yellow); pH Urine 5.5 (5-7)
[2024-01-12 19:59] LABS: Bacteria Urine None Seen /hpf; Hyaline Casts Urine 1.65 /lpf; RBC Urine 0-2 /hpf (0-2); Squamous Epithelial Cell Urine 0-5 /hpf (0-5); WBC Urine 0-5 /hpf (0-5)
[2024-01-12 20:01] LABS: Amphetamines Screen Urine Positive (Negative); Barbiturates Screen Urine Negative (Negative); Benzodiazepines Screen Urine Positive (Negative); Cocaine Screen Urine Negative (Negative); Opiate Screen Urine Negative (Negative); PCP Screen Urine Negative (Negative); THC Screen Urine Positive (Negative)
[2024-01-12 20:23] VITALS: BP 123/70; PULSE 89; RESP 16; O2SAT 95
== END 2024-01-12 20:25 | disposition home or self-care (01) ==
PROVIDERS: Emergency Provider Emergency Medicine
DX: T50.901A Poisoning by unspecified drugs, medicaments and biological substances, accidental (unintentional), initial encounter (principal); X58.XXXA Exposure to other specified factors, initial encounter; F19.90 Other psychoactive substance use, unspecified, uncomplicated
CPT/HCPCS: 36415; 80053; 80306; 80307; 81001; 84443; 85025; 93005; 99284

== ENCOUNTER 2024-05-02 23:18 | Inpatient (IN) | payer MEDICAID, SELFPAY ==
[2024-05-02 23:18] VITALS: BP 176/103; PULSE 98; RESP 18; TEMP 36.7; O2SAT 99; BMI 25.7
[2024-05-03] MEDS: nicotine 14 mg Patch 1 PATCH TRANSDERMA (00:03)
[2024-05-03 00:16] LABS: Amphetamines Screen Urine Positive (Negative); Bacteria Urine None Seen /hpf; Barbiturates Screen Urine Negative (Negative); Benzodiazepines Screen Urine Positive (Negative); Cocaine Screen Urine Negative (Negative); Hyaline Casts Urine 14.87 /lpf; Opiate Screen Urine Negative (Negative); PCP Screen Urine Negative (Negative); RBC Urine 0-2 /hpf (0-2); Squamous Epithelial Cell Urine 0-5 /hpf (0-5); THC Screen Urine Positive (Negative); WBC Urine 0-5 /hpf (0-5)
--- NOTE | 2024-05-03 00:20 | W.ED.PSYCHS ---
HPI - Psych General: Chief Complaint: Psychiatric Symptoms Stated Complaint: mhe Time Seen by Provider: 05/03/24 00:06 History of Present Illness: This patient is a 28-year-old white male who presents to the emergency department stating that he is having suicidal thoughts. He states they are chronic but worse when he is using meth. He has been using meth tonight. He states he uses meth to try to get off of using kratom. States he was kicked out of his current living situation tonight because of his meth use. States he has a history of generalized anxiety disorder and schizoaffective disorder. No specific suicidal plan. Associated symptoms: Reports suicidal ideation Related Data Home Medications ?Medication ?Instructions ?Recorded ?Confirmed No Known Home Medications 09/10/22 08/20/23 Allergies Allergy/AdvReac Type Severity Reaction Status Date / Time No Known Allergies Allergy Verified 05/02/24 23:21 Review of Systems General: Reports: 10 or more systems reviewed and unremarkable except in HPI and below Psych: Reports: suicidal ideation [facility] ED PFSH: Social History Smoking and tobacco/nicotine status: never used tobacco/nicotine Substance/Drug Use: current Physical Exam Const: COMMON NORMALS: no acute distress, patient oriented x3 and no limitations GENERAL APPEARANCE: cooperative and comfortable HENMT: COMMON NORMALS: normocephalic, atraumatic, Normal nasal mucous membranes and turbinates present, moist oral mucous membranes and oropharynx normal HEAD & SCALP: normal to inspection, normocephalic and atraumatic FACE & SINUS: normal facial exam NOSE: Normal nasal mucous membranes and turbinates present Eye: COMMON NORMALS: Equal, round and reactive pupils present, EOMs intact bilaterally and conjunctivae normal GENERAL EYE: appearance normal, both eyes and all related structures CONJUNCTIVA: Yes conjunctivae normal PUPIL: Yes Equal, round and reactive pupils present Neck/C-Spine: COMMON NORMALS: supple and no JVD Chest: COMMONS NORMALS: normal inspection of the chest Resp: COMMON NORMALS: normal respiratory effort and clear to auscultation bilaterally AUSCULTATION: clear to auscultation bilaterally Cardio: COMMON NORMALS: no JVD, regular rate, regular rhythm, No gallops present (Cardio), No murmurs present (Cardio) and No rub (Cardio) RATE: regular rate RHYTHM: regular rhythm GI: COMMON NORMALS: Normal to inspection, nondistended, normoactive bowel sounds present, Soft to palpation and non-tender AUSCULTATION: Yes normoactive bowel sounds PALPATION: Yes Soft to palpation : COMMON NORMALS: Yes no CVA tenderness BLADDER/KIDNEY EXAM: Yes no CVA tenderness Back/Pelvis: COMMON NORMALS: no CVA tenderness and thoracic and lumbar spine normal to inspection Extremity: COMMON NORMALS: normal to inspection Neuro: COMMON NORMALS: patient oriented x3 and CN's II-XII intact bilaterally Psych: COMMON NORMALS: mental status grossly normal, Normal thought process present, cooperative and speech normal APPEARANCE: Yes grossly normal ATTITUDE: Yes engaged ACTIVITY/MOTOR BEHAVIOR: Yes psychomotor agitation SPEECH: Yes normal speech MOOD & AFFECT: Yes euthymic mood THOUGHT PROCESS: Normal thought process present THOUGHT CONTENT: Yes Suicidality present ATTENTION/CONCENTRATION: Yes attention grossly intact MEMORY/COGNITION: Yes memory grossly intact INSIGHT: Good insight present (Psych) JUDGEMENT: Poor judgement present (Psych) Skin: COMMON NORMALS: no rashes or lesions noted, turgor normal and no jaundice GENERAL SKIN EXAM: no rashes or lesions noted and turgor normal Course Vital Signs: Vital signs: Vital Signs Temperature 98.0 F 05/02/24 23:18 Pulse Rate 98 05/02/24 23:18 Respiratory Rate 18 05/02/24 23:18 Blood Pressure 176/103 05/02/24 23:18 Pulse Oximetry 99 05/02/24 23:18 Oxygen Delivery Me thod Room Air 05/02/24 23:18 MDM - Psych Medical Decision Making Case was discussed with Dr. Ochoa, psychiatrist. He has accepted the patient for admission. Patient will be transferred to the Neuropsych Unit. Patient is stable. Lab Data Laboratory Results Amorphous Sediment Not Reportable 05/03/24 00:00 Urine Opiates Screen Negative ng/mL (Negative) 05/03/24 00:00 Ur Barbiturates Screen Negative ng/mL (Negative) 05/03/24 00:00 Ur Phencyclidine Scrn Negative ng/mL (Negative) 05/03/24 00:00 Ur Amphetamines Screen Positive ng/mL (Negative) H 05/03/24 00:00 U Benzodiazepines Scrn Positive ng/mL (Negative) H 05/03/24 00:00 Urine Cocaine Screen Negative ng/mL (Negative) 05/03/24 00:00 U Marijuana (THC) Screen Positive ng/mL (Negative) H 05/03/24 00:00 No radiology studies performed this visit Discharge Plan Discharge Condition: Stable Prescriptions: No Action No Known Home Medications Print Language: Irish Coding Level of Care Code ED Perforator Operator for Kristopher Singer
[2024-05-03 00:24] LABS: Bilirubin Urine Negative (Negative); Blood Urine Negative (Negative); Glucose Urine UA Negative (Normal); Ketones Urine Negative (Negative); Leukocyte Esterase Urine Negative (Negative); Nitrate Urine Negative (Negative); Protein Urine 1+ (Negative); Specific Gravity, Urine 1.026 (1.005-1.030); Urine Appearance Clear (CLEAR); Urine Color Yellow (Yellow)
[2024-05-03 00:33] LABS: UA Slide Review UA Slide Review Perf
[2024-05-03 00:35] LABS: Basophils # 0.1 10^3/uL (0.0-0.1); Basophils % 0.4 %; Eosinophils # 0.1 10^3/uL (0.0-0.8); Eosinophils % 0.7 %; Hematocrit 44.4 % (37-53); Lymphocytes # 2.3 10^3/uL (0.8-4.8); Lymphocytes % 18.8 %; Mean Corpuscular HGB Conc 34.5 g/dL (30-55); Mean Corpuscular Hemoglobin 28.7 pg (27-33); Mean Corpuscular Volume 83.1 fl (82-101); Mean Platelet Volume 8.9 fL (7.4-10.4); Monocytes # 1.4 10^3/uL (0.2-0.9); Monocytes % 11.5 %; Neutrophils # 8.39 10^3/uL (1.8-7.7); Neutrophils % 68.4 %; Nucleated Red Blood Cells % 0 %; Platelet Count 433 10^3/cmm (157-399); Red Blood Count 5.34 10^6/uL (3.85-5.65); Red Cell Distribution Width 11.9 % (12.1-15.1); White Blood Count 12.25 10^3/uL (3.29-11.43)
[2024-05-03 00:56] LABS: Alanine Aminotransferase 17 U/L (0-41); Albumin Level 4.8 g/dL (3.5-5.2); Alkaline Phosphatase 66 U/L (40-130); Anion Gap 17.1 (5-19); Aspartate Amino Transferase 27 U/L (0-40); Blood Urea Nitrogen 15 mg/dL (6-20); Calcium 9.1 mg/dL (8.5-10.5); Carbon Dioxide 28 mmol/L (22-29); Chloride 94 mmol/L (98-107); Creatinine Clr Calc Pharmacy 105.9809; Glomerular Filtration Rate 72.6 mL/min (90-130); Glucose 98 mg/dL (65-115); Osmolality Calculated 283 mOsm/kg (285-295); Potassium 3.1 mmol/L (3.5-5.1); Sodium 136 mmol/L (136-145); Total Bilirubin 0.6 mg/dL (0.15-1.2); Total Protein 7.8 g/dL (6.6-8.7)
[2024-05-03 01:10] LABS: Acetaminophen < 5.0 ug/mL (10-30); Alcohol Level < 10 mg/dL (0-10); Salicylate < 0.3 mg/dL (3-10)
[2024-05-03 01:33] VITALS: BP 163/88; PULSE 94; RESP 18; TEMP 36.4; O2SAT 96
[2024-05-03] MEDS: hyDROXYzine 25 mg Capsule 50 MG PO ×2 (02:16→21:38)
[2024-05-03] MEDS: trazodone 50 mg Tablet PO ×2 (02:16→21:38)
[2024-05-03] MEDS: OLANZapine 5 mg ODT PO (02:20)
--- NOTE | 2024-05-03 02:37 | PC.NURSE ---
Admission assessment. Pt. transferred from ED + for Meth. Pt. states he is having both auditory and visual hallucinations. States he has chronic SI that is worse when he is using meth. Pt. says he does meth to try to get off of Kratom. Pt. was kicked out of his current living situation tonight d/t his meth use. Pt. stated if he was to try and kill himself it would be by overdosing. Pt. stated he has been to [facility] March 19 of this year and that he is currently on probation. Pt. also stated d/t his meth use he has lost about 20lbs recently. Pt. says he is not able to read or write very well.
[2024-05-03 06:00] VITALS: RESP 15
[2024-05-03] MEDS: folic acid 1 mg Tablet PO (08:58)
[2024-05-03] MEDS: multivitamin therapeutic Tablet 1 TAB PO (08:58)
[2024-05-03] MEDS: thiamine 100 mg Tablet PO (08:58)
[2024-05-03 14:00] VITALS: BP 109/70; PULSE 98; RESP 15; TEMP 36.4; O2SAT 97
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
[2024-05-03] MEDS: buprenorphine-naloxone 4-1 mg Film 2 EACH SUBLINGUAL (17:29)
[2024-05-03] MEDS: nicotine 4 mg lozenge MUCOUS MEM ×2 (18:26→20:33)
[2024-05-03 19:33] VITALS: BP 116/78; PULSE 89; RESP 18; TEMP 36.8; O2SAT 98
[2024-05-03] MEDS: OLANZapine 5 mg TABLET PO (21:38)
[2024-05-04 06:00] VITALS: BP 110/65; PULSE 85; RESP 18; TEMP 36.9; O2SAT 98
[2024-05-04] MEDS: multivitamin therapeutic Tablet 1 TAB PO (09:07)
[2024-05-04] MEDS: thiamine 100 mg Tablet PO (09:07)
[2024-05-04] MEDS: nicotine 4 mg lozenge MUCOUS MEM ×2 (09:07→16:10)
[2024-05-04] MEDS: buprenorphine-naloxone 4-1 mg Film 2 EACH SUBLINGUAL ×2 (09:07→21:43)
[2024-05-04] MEDS: folic acid 1 mg Tablet PO (09:07)
[2024-05-04 14:00] VITALS: BP 109/55; PULSE 65; RESP 16; O2SAT 96
--- NOTE | 2024-05-04 17:35 | P.NPUPN_ITS ---
Subjective NPU 2 Subjective: 28-year-old male with a history of opiat e use disorder and recent methamphetamine induced mood disorder admitted with suicidal ideation. He had been somewhat isolative on the milieu and reported that he was tired today. He had not endorsed any suicidal thoughts at this time. He had denied any hallucinations today. He had reported that he was trying to manage his cravings for opiates and continued to report that it was a bad idea to continue to use methamphetamine. Mental Status Exam 2 MSE Comments: The patient is a casually dressed white male who appeared his stated age with fleeting eye contact. He appeared to show evidence of psychomotor retardation today. There was no clear evidence of other tics or tremors or other involuntary motor movements. His gait appeared within normal limits. His hygiene was fair. His speech had increase in latency but was normal in volume. His mood was described as allright. His affect appeared restricted in range. His thought process was linear and logical. His thought content showed evidence of suicidal ideation without any specific plan. He denied any homicidal ideation. He did at times appear to be responding to internal stimuli although he denied any auditory or visual hallucinations. There was continued evidence of paranoia. He was alert and oriented to person place time and situation. His recent and remote memory appear grossly intact. His insight is poor. His judgment was poor. His impulse control appeared limited. Vitals/I&O/Wt Last Vital Signs Temp 98.4 F 05/04/24 06:00 Pulse 65 05/04/24 14:00 Resp 16 05/04/24 14:00 BP 109/55 05/04/24 14:00 Pulse Ox 96 05/04/24 14:00 O2 Del Method Room Air 05/04/24 14:00 Weight last 48 hrs Weight 86.183 kg Data NPU 05/03/24 00:26 05/03/24 00:26 A&P Assessment and plan (1) Methamphetamine-induced mood disorder: (2) Suicidal ideation: (3) Opioid use disorder, severe, dependence: Plan 28-year-old male admitted with a history of opiate dependence along with methamphetamine abuse currently endorsing increased dysphoria, depression and possible psychosis. #1.? Engage patient in individual milieu and group therapy. #2?? Recommend sober living treatment at the highest level of care to which the patient is willing to commit #3??? Continue Suboxone 8/2SL BID, and zyprexa 5mg at night to target psychosis.. #4?? TO-15 minute checks? #5?? Will attempt to gather collateral information PDMP PDMP Reviewed: Not Reviewed Involuntary Hold Information 2 Hold Status: Legal Status: 96 Hour Hold Date/Time Hold Expires: 05/08/2024 @ 0125 Attestations NPU 2 Medical Necessity Statement*: Inpatient hospitalization is medically necessary and deemed to be the clinically appropriate intervention at this time.? Medications will be initiated and adjusted as clinically indicated.? The patient?s likely length of stay is 5-7 days.? Coding Level of Care Code Acute Code for g Fwd Diagnoses Methamphetamine-induced mood disorder F15.94 Suicidal ideation R45.851 Opioid use disorder, severe, dependence F11.20
[2024-05-04 20:46] VITALS: BP 116/63; PULSE 64; RESP 18; TEMP 37.1; O2SAT 96
[2024-05-04] MEDS: OLANZapine 5 mg TABLET PO (21:43)
[2024-05-05 06:00] VITALS: BP 129/85; PULSE 95; RESP 18; TEMP 36.8; O2SAT 97; BMI 25.9
[2024-05-05] MEDS: buprenorphine-naloxone 4-1 mg Film 2 EACH SUBLINGUAL ×2 (07:54→16:53)
[2024-05-05] MEDS: thiamine 100 mg Tablet PO (07:56)
[2024-05-05] MEDS: folic acid 1 mg Tablet PO (07:56)
[2024-05-05] MEDS: multivitamin therapeutic Tablet 1 TAB PO (07:56)
[2024-05-05] MEDS: nicotine 4 mg lozenge MUCOUS MEM ×4 (09:14→17:34)
[2024-05-05 14:00] VITALS: BP 107/60; PULSE 71; RESP 18; TEMP 36.6; O2SAT 98
--- NOTE | 2024-05-05 14:14 | P.NPUPN_ITS ---
Subjective NPU 2 Subjective: 28-year-old male with a history of opiat e use disorder and recent methamphetamine induced mood disorder admitted with suicidal ideation. The patient denied any suicidal ideation today. He had reported that he was feeling less irritable. He had reported no side effects from the reinitiation of Suboxone. He had stated that the Zyprexa had made him calmer and he had reported some improved sleep. The patient had denied any suicidal thoughts at this time. He had reported that Shai Guevara had significant side effects for him. He had not endorsed any desire to consider inpatient substance abuse treatment. Mental Status Exam 2 MSE Comments: The patient is a casually dressed white male who appeared his stated age with fleeting eye contact. He appeared to show evidence of psychomotor retardation today. There was no clear evidence of other tics or tremors or other involuntary motor movements. His gait appeared within normal limits. His hygiene was fair. His speech had normal latency and normal volume and productivity. His mood was described as okay. His affect appeared flat and mood incongruent. His thought process was linear and logical. His thought content showed no evidence of suicidal ideation without any specific plan. He denied any homicidal ideation. He continued to appear internally preoccupied but he denied auditory or visual hallucinations. There was continued evidence of paranoia. He was alert and oriented to person, place, time, and situation. His recent and remote memory appear grossly intact. His insight is poor. His judgment was poor. His impulse control appeared limited. Vitals/I&O/Wt Last Vital Signs Temp 98.2 F 05/05/24 06:00 Pulse 95 05/05/24 06:00 Resp 18 05/05/24 06:00 BP 129/85 05/05/24 06:00 Pulse Ox 97 05/05/24 06:00 O2 Del Method Room Air 05/05/24 06:00 05/04/24 05/05/24 05/05/24 22:59 06:59 14:59 Intake Total 0 / 0 Balance 0 / 0 Weight last 48 hrs Weight 86.636 kg Data NPU 05/03/24 00:26 05/03/24 00:26 A&P Assessment and plan (1) Methamphetamine-induced mood disorder: (2) Suicidal ideation: (3) Opioid use disorder, severe, dependence: Plan 28-year-old male admitted with a history of opiate dependence along with methamphetamine abuse currently endorsing increased dysphoria, depression and possible psychosis. #1.? Engage patient in individual milieu and group therapy. #2?? Recommend sober living treatment at the highest level of care to which the patient is willing to commit #3??? Continue Suboxone 8/2SL BID, and continue zyprexa 5mg at night to target psychosis.. #4?? TO-15 minute checks? #5?? Will attempt to gather collateral information PDMP PDMP Reviewed: Not Reviewed Involuntary Hold Information 2 Hold Status: Legal Status: 96 Hour Hold Date/Time Hold Expires: 05/08/2024 @ 0125 Attestations NPU 2 Medical Necessity Statement*: Inpatient hospitalization is medically necessary and deemed to be the clinically appropriate intervention at this time.? Medications will be initiated and adjusted as clinically indicated.? The patient?s likely length of stay is 5-7 days.? Coding Level of Care Code [facility] Methamphetamine-induced mood disorder F15.94 Suicidal ideation R45.851 Opioid use disorder, severe, dependence F11.20
[2024-05-05 20:21] VITALS: BP 113/63; PULSE 92; RESP 18; O2SAT 98
[2024-05-05] MEDS: OLANZapine 5 mg TABLET PO (20:58)
[2024-05-05] MEDS: trazodone 50 mg Tablet PO (20:58)
[2024-05-06 06:00] VITALS: BP 98/63; PULSE 60; RESP 18; TEMP 36.4; O2SAT 96
[2024-05-06] MEDS: multivitamin therapeutic Tablet 1 TAB PO (08:04)
[2024-05-06] MEDS: folic acid 1 mg Tablet PO (08:04)
[2024-05-06] MEDS: thiamine 100 mg Tablet PO (08:04)
[2024-05-06] MEDS: buprenorphine-naloxone 4-1 mg Film 2 EACH SUBLINGUAL (08:04)
[2024-05-06] MEDS: nicotine 4 mg lozenge MUCOUS MEM ×2 (08:04→13:02)
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
[2024-05-06 12:14] VITALS: BP 98/63; PULSE 60; RESP 16; TEMP 36.4; O2SAT 96
== END 2024-05-06 13:38 | disposition home or self-care (01) | DRG 897 ==
LOC: ER 05-03 00:24 → NP 05-03 01:16
PROVIDERS: Admitting Provider Psychiatry & Neurology Psychiatry; Emergency Provider Emergency Medicine; Visit Provider Psychiatry & Neurology Psychiatry
DX: F15.14 Other stimulant abuse with stimulant-induced mood disorder (principal); R45.851 Suicidal ideations; F11.20 Opioid dependence, uncomplicated
CPT/HCPCS: 36415; 80053; 80306; 80307; 81001; 85025; 97150; 97165; 99285; J0573; J9999

== ENCOUNTER 2024-05-25 07:43 | Emergency (ER) | payer MEDICAID, SELFPAY ==
[2024-05-25 07:50] VITALS: BP 144/93; PULSE 111; RESP 16; TEMP 36.8; O2SAT 96; BMI 25.0
--- NOTE | 2024-05-25 08:14 | W.ED.GENADLT ---
HPI - General Adult General: Chief complaint: General Medical Stated complaint: suboxone withdrawal Time Seen by Provider: 05/25/24 07:57 History of Present Illness: This patient is a 28-year-old male presenting stating that he is in withdrawal. He says he is withdrawing from Suboxone. He was admitted to the NPU here about 3 weeks ago. He tells me at that time that he was admitted for using kratom and being suicidal. He says he is not suicidal today. He was prescribed Suboxone 8 mg daily for a total of 30 days. He says that he filled the prescription at [facility] but they only had 19 doses at that time. He additionally took 2/day instead of 1/day so he ran out early. He says he has been out for the last 4 to 5 days. He denied using any other drugs since his discharge from the hospital. When pressed he did admit that he taken a Xanax about a week ago. His chart reflects a history of methamphetamine abuse. He was also prescribed olanzapine and I do not know if he is taking that or not. He does tell me that he has a follow-up appointment at [facility] on June 19. When asked why he took 2/day instead of 1 he told me that his addicted brain is supposed to be on 16 mg. He says that he was on Suboxone in the past and that was his dose at that time. He says that he is not able to sleep. He is clearly agitated and unable to sit still on the bed. He is slightly diaphoretic. He complains of diarrhea. No vomiting. Related Data Previous Rx's ?Medication ?Instructions ?Recorded buprenorphine 8 mg-naloxone 2 mg 1 film sublingual DAILY #30 ea 05/06/24 sublingual film (Suboxone) olanzapine 5 mg tablet 5 mg PO BEDTIME 30 days #30 tabs 05/06/24 buprenorphine 8 mg-naloxone 2 mg 1 film sublingual Q24H #30 ea 05/25/24 sublingual film (Suboxone) Allergies Allergy/AdvReac Type Severity Reaction Status Date / Time No Known Allergies Allergy Verified 05/25/24 08:02 [facility] ED [facility]: Medical History (Updated 05/25/24 @ 10:03 by Julieta Orozco MD) Psychiatric care Social History Smoking and tobacco/nicotine status: current some day tobacco/nicotine user Substance/Drug Use: current Physical Exam Const: GENERAL APPEARANCE: anxious NUTRITIONAL APPEARANCE: thin OTHER: Unable to be still HENMT: HEAD & SCALP: normal to inspection FACE & SINUS: normal facial exam MOUTH: moist mucous membranes abnormal Details: parched Eye: GENERAL EYE: appearance normal, both eyes and all related structures Neck/C-Spine: COMMON NORMALS: supple, no meningeal signs and no JVD Chest: COMMONS NORMALS: normal inspection of the chest Resp: COMMON NORMALS: normal respiratory effort, No use of accessory muscles and clear to auscultation bilaterally AUSCULTATION: clear to auscultation bilaterally Cardio: COMMON NORMALS: no JVD, regular rate, regular rhythm and No murmurs present (Cardio) RATE: regular rate RHYTHM: regular rhythm GI: COMMON NORMALS: Normal to inspection, nondistended, normoactive bowel sounds present, Soft to palpation and non-tender INSPECTION: Yes normal to inspection AUSCULTATION: Yes normoactive bowel sounds PALPATION: Yes Soft to palpation Back/Pelvis: COMMON NORMALS: thoracic and lumbar spine normal to inspection Extremity: COMMON NORMALS: normal to inspection Neuro: COMMON NORMALS: moves all extremities, no focal motor deficits and no sensory deficits noted MENINGEAL SIGNS: Yes no meningeal signs Skin: COMMON NORMALS: no rashes or lesions noted and turgor normal NARRATIVE SKIN EXAM: Clammy GENERAL SKIN EXAM: no rashes or lesions noted and turgor normal Course Vital Signs: Vital signs: Vital Signs Temperature 98.2 F 05/25/24 07:50 Pulse Rate 111 H 05/25/24 07:50 Respiratory Rate 16 05/25/24 07:50 Blood Pressure 144/93 05/25/24 07:50 Pulse Oximetry 96 05/25/24 07:50 Oxygen Delivery Me thod Room Air 05/25/24 07:50 MDM - General Adult Medical Decision Making Patient's presentation is not necessarily consistent with Suboxone withdrawal. I have concerns about continued methamphetamine use or other opiate withdrawal. Urine drug screen pending. The patient had denied any drug use other than Suboxone since being discharged from the hospital however he did tell the nurse that he has been using kratom. This would be more consistent with his withdrawal symptoms today. I gave him a dose of 8 mg of sublingual Suboxone in the ED. We had a long discussion about how I typically do not prescribe it from the ER but I will in this case because he has a scheduled appointment on June 19. I prescribed him enough to get through to that appointment. I emphasized that if he takes 2 a day instead of 1 a day he is going to run out early and he will not get another prescription from this ER. He was improved after the dose here and was appreciative of our care. Lab Data Laboratory Results Urine Opiates Screen Negative ng/mL (Negative) 05/25/24 08:20 Ur Barbiturates Screen Negative ng/mL (Negative) 05/25/24 08:20 Ur Phencyclidine Scrn Negative ng/mL (Negative) 05/25/24 08:20 Ur Amphetamines Screen Negative ng/mL (Negative) 05/25/24 08:20 U Benzodiazepines Scrn Positive ng/mL (Negative) H 05/25/24 08:20 Urine Cocaine Screen Negative ng/mL (Negative) 05/25/24 08:20 U Marijuana (THC) Screen Positive ng/mL (Negative) H 05/25/24 08:20 No radiology studies performed this visit Discharge Plan Discharge Patient Disposition: Home Clinical Impression: Opioid use disorder, severe, dependence Condition: Stable Prescriptions: New buprenorphine-naloxone [Suboxone] 8-2 mg film 1 film sublingual Q24H Qty: 30 0RF No Action olanzapine 5 mg Tablet 5 mg PO BEDTIME 30 Days Qty: 30 1RF buprenorphine-naloxone [Suboxone] 8-2 mg film 1 film sublingual DAILY Qty: 30 0RF Discharge Orders: Discharge ED (Routine); Ordered 05/25/24 Ordered By: Julieta Orozco Patient Instructions: Opioid Safety, Pain Management Activity Restrictions/Additional Instructions: Keep your follow up appointment with [facility] on June 19. Take ONLY one suboxone daily. You will not get another prescription before your follow up appointment. Print Language: Hungarian Coding Level of Care Code ED Payroll Manager for Kristopher Singer
[2024-05-25 08:40] LABS: Amphetamines Screen Urine Negative (Negative); Barbiturates Screen Urine Negative (Negative); Benzodiazepines Screen Urine Positive (Negative); Cocaine Screen Urine Negative (Negative); Opiate Screen Urine Negative (Negative); PCP Screen Urine Negative (Negative); THC Screen Urine Positive (Negative)
[2024-05-25] MEDS: buprenorphine-naloxone 4-1 mg Film 2 EACH SUBLINGUAL (08:50)
== END 2024-05-25 10:42 | disposition home or self-care (01) ==
PROVIDERS: Emergency Provider Emergency Medicine
DX: F11.20 Opioid dependence, uncomplicated (principal); Z72.0 Tobacco use
CPT/HCPCS: 80306; 99283; J0573

== ENCOUNTER 2024-06-20 00:12 | Inpatient (IN) | payer MEDICAID, SELFPAY ==
[2024-06-20 00:13] VITALS: BP 135/78; PULSE 80; RESP 18; TEMP 37.1; O2SAT 98; BMI 23.0
--- NOTE | 2024-06-20 00:17 | ECG_ITS ---
[facility] Date: 2024-06-20 Pat Name: Keron Holland Department: Room: Gender: Male Client Application Support Specialist: : 1995 Requested By: Bethany Mederos Order Number: [id number] Lombardo MD: Nawaf Mendoza M.D. Measurements Intervals [place] Rate: 63 P: 78 MN: 150 QRS: 81 QRSD: 100 T: 2 QT: 394 QTc: 405 Interpretive Statements SINUS RHYTHM Compared to ECG 01/12/2024 18:12:09 T-wave abnormality no longer present Electronically Signed On 06-24-2024 09:30:27 CDT by Nawaf Mendoza M.D. [email or web address]
--- NOTE | 2024-06-20 00:24 | W.ED.PSYCHS ---
HPI - Psych General: Chief Complaint: Psychiatric Symptoms Stated Complaint: POSSIBLE OVERDOSE Time Seen by Provider: 06/20/24 00:14 History of Present Illness: 29-year-old man with a history of meth ketamine induced mood disorder and opioid abuse who presents emergency room with police and by ambulance. Apparently he had been having erratic behavior. They reported he had taken multiple different drugs including methamphetamines, opioids etc. Apparently he has not slept in 3 days. Police also report that he was trying to sell methamphetamines to neighbors. When you talk with him he is very pressured and has flight of ideas about bitcoin and AI. Related Data Previous Rx's ?Medication ?Instructions ?Recorded buprenorphine 8 mg-naloxone 2 mg 1 film sublingual DAILY #30 ea 05/06/24 sublingual film (Suboxone) olanzapine 5 mg tablet 5 mg PO BEDTIME 30 days #30 tabs 05/06/24 buprenorphine 8 mg-naloxone 2 mg 1 film sublingual Q24H #30 ea 05/25/24 sublingual film (Suboxone) Allergies Allergy/AdvReac Type Severity Reaction Status Date / Time No Known Allergies Allergy Verified 06/20/24 00:20 Review of Systems Narrative: Constitutional symptoms: Negative except as documented in HPI. Skin symptoms: Negative except as documented in HPI. Eye symptoms: Negative except as documented in HPI. ENMT symptoms: Negative except as documented in HPI. Respiratory symptoms: Negative except as documented in HPI. Cardiovascular symptoms: Negative except as documented in HPI. Gastrointestinal symptoms: Negative except as documented in HPI. Genitourinary symptoms: Negative except as documented in HPI. Musculoskeletal symptoms: Negative except as documented in HPI. Neurologic symptoms: Negative except as documented in HPI. Psychiatric symptoms: Negative except as documented in HPI. Endocrine symptoms: Negative except as documented in HPI. [facility] ED PFSH: Medical History (Updated 06/20/24 @ 00:18 by Bethany Garcia MD) Psychiatric care Social History Smoking and tobacco/nicotine status: current some day tobacco/nicotine user Substance/Drug Use: current Physical Exam Narrative: EXAM NARRATIVE: General: Alert. no acute distress Skin: Warm, dry Head: Normocephalic, atraumatic. Neck: Supple, trachea midline. Eye: Extraocular movements are intact. Ears, nose, mouth and throat: Oral mucosa moist. Cardiovascular: Regular rate and rhythm, Normal peripheral perfusion. Respiratory: Lungs are clear to auscultation, respirations are non-labored, breath sounds are equal, Symmetrical chest wall expansion. Gastrointestinal: Soft, Nontender, Non distended Musculoskeletal: Normal ROM, no deformity. Neurological: Not Alert and oriented, No focal neurological deficit observed. Psychiatric: confused, agitated. flight of ideas Course Vital Signs: Vital signs: Vital Signs Temperature 98.7 F 06/20/24 00:13 Pulse Rate 80 06/20/24 00:13 Respiratory Rate 18 06/20/24 00:13 Blood Pressure 135/78 06/20/24 00:13 Pulse Oximetry 98 06/20/24 00:13 Oxygen Delivery Me thod Room Air 06/20/24 00:13 MDM - Psych Medical Decision Making Medical decision making: Differential diagnosis for patient with reported psychosis with plan for psychiatric admission including but not limited to and based on the above HPI, review of systems and physical exam: concerns for infection, alcohol intoxication, cardiac issues or other medical problems prior to psychiatric admission. Orders placed to evaluate differential diagnosis based on the above differential, HPI and physical exam labwork, ekg ordered to evaluate the pathologies and to clear the patient medically prior to psychiatric admission EKG: Time 12:38 AM. Rate 63. Normal sinus rhythm, No ST-T changes, no ectopy, normal IL & QRS intervals, This was reviewed and interpreted by myself the ER physician at 12:45 AM Lab Review: Laboratory results were reviewed and interpreted by myself the emergency room physician. - Medically cleared. - EKG shows no ischemic changes. - Blood alcohol level is negative, as well as salicylate and Tylenol. ?UA and drug screen are pending at admission. - No anemia. - BUN and creatinine are within normal limits. I reviewed the patient's medical record. Patient was admitted for similar type issues a couple of months ago. Consultation: I spoke with Dr. Mendoza who is on-call for psychiatry who agrees to admission. Assessment and plan: Psychosis Polysubstance abuse ?Kameron PERKINS in the emergency room -Admission to neuropsychiatric unit for continued evaluation and treatment. - All lab work was reviewed and interpreted personally by myself, the ER physician - Evaluation and treatment of this problem were appropriate in the emergency setting Lab Data 06/20/24 00:35 06/20/24 00:35 Laboratory Results WBC 9.08 10^3/uL (3.29-11.43) 06/20/24 00:35 RBC 5.17 10^6/uL (3.85-5.65) 06/20/24 00:35 Hgb 14.50 g/dL (11.27-16.99) 06/20/24 00:35 Hct 43.6 % (37-53) 06/20/24 00:35 MCV 84.3 fl (82-101) 06/20/24 00:35 MCH 28.0 pg (27-33) 06/20/24 00:35 MCHC 33.3 g/dL (30-55) 06/20/24 00:35 RDW 12.0 % (12.1-15.1) L 06/20/24 00:35 Plt Count 477 10^3/cmm (157-399) H 06/20/24 00:35 MPV 9.0 fL (7.4-10.4) 06/20/24 00:35 Neut % (Auto) 72.2 % 06/20/24 00:35 Lymph % (Auto) 17.7 % 06/20/24 00:35 [place] % (Auto) 9.3 % 06/20/24 00:35 Eos % (Auto) 0.1 % 06/20/24 00:35 Baso % (Auto) 0.4 % 06/20/24 00:35 Neut # (Auto) 6.55 10^3/uL (1.8-7.7) 06/20/24 00:35 Lymph # (Auto) 1.6 10^3/uL (0.8-4.8) 06/20/24 00:35 [place] # (Auto) 0.8 10^3/uL (0.2-0.9) 06/20/24 00:35 Eos # (Auto) 0.0 10^3/uL (0.0-0.8) 06/20/24 00:35 Baso # (Auto) 0.0 10^3/uL (0.0-0.1) 06/20/24 00:35 Nucleated RBC % (auto) 0 % 06/20/24 00:35 Nucleated RBCs # 0.0 /100WBC 06/20/24 00:35 Sodium 140 mmol/L (136-145) 06/20/24 00:35 Potassium 3.7 mmol/L (3.5-5.1) 06/20/24 00:35 Chloride 101 mmol/L (98-107) 06/20/24 00:35 Carbon Dioxide 23 mmol/L (22-29) 06/20/24 00:35 Anion Gap 19.7 (5-19) H 06/20/24 00:35 BUN 22 mg/dL (6-20) H 06/20/24 00:35 Creatinine 1.1 mg/dL (0.7-1.2) 06/20/24 00:35 GFR Calculation 79.7 mL/min (90-130) L 06/20/24 00:35 Glucose 110 mg/dL (65-115) 06/20/24 00:35 Calculated Osmolality 294 mOsm/kg (285-295) 06/20/24 00:35 Calcium 9.7 mg/dL (8.5-10.5) 06/20/24 00:35 Total Bilirubin 1.1 mg/dL (0.15-1.2) 06/20/24 00:35 AST 27 U/L (0-40) 06/20/24 00:35 ALT 25 U/L (0-41) 06/20/24 00:35 Alkaline Phosphatase 79 U/L (40-130) 06/20/24 00:35 Total Protein 8.3 g/dL (6.6-8.7) 06/20/24 00:35 Albumin 5.1 g/dL (3.5-5.2) 06/20/24 00:35 Globulin 3.2 g/dL (1.3-4.6) 06/20/24 00:35 TSH 3.41 uIU/mL (0.27-4.20) 06/20/24 00:35 Salicylates < 0.3 mg/dL (3-10) L 06/20/24 00:35 Acetaminophen < 5.0 ug/mL (10-30) L 06/20/24 00:35 Ethyl Alcohol < 10 mg/dL (0-10) 06/20/24 00:35 No radiology studies performed this visit Discharge Plan Discharge Patient Disposition: Admitted As Inpatient Clinical Impression: Psychosis, Polysubstance abuse Condition: Stable Coding Level of Care Code ED Sorter [employer] Articles for Kristopher Singer
--- NOTE | 2024-06-20 00:27 | PC.NURSE ---
pt was dressed into green scrubs by Ana Rosa in security
[2024-06-20 00:40] LABS: Basophils % 0.4 %; Eosinophils % 0.1 %; Hematocrit 43.6 % (37-53); Lymphocytes # 1.6 10^3/uL (0.8-4.8); Lymphocytes % 17.7 %; Mean Corpuscular HGB Conc 33.3 g/dL (30-55); Mean Corpuscular Volume 84.3 fl (82-101); Monocytes # 0.8 10^3/uL (0.2-0.9); Monocytes % 9.3 %; Neutrophils # 6.55 10^3/uL (1.8-7.7); Neutrophils % 72.2 %; Nucleated Red Blood Cells % 0 %; Platelet Count 477 10^3/cmm (157-399); Red Blood Count 5.17 10^6/uL (3.85-5.65); White Blood Count 9.08 10^3/uL (3.29-11.43)
[2024-06-20 01:12] LABS: Acetaminophen < 5.0 ug/mL (10-30); Alanine Aminotransferase 25 U/L (0-41); Albumin Level 5.1 g/dL (3.5-5.2); Alcohol Level < 10 mg/dL (0-10); Alkaline Phosphatase 79 U/L (40-130); Anion Gap 19.7 (5-19); Aspartate Amino Transferase 27 U/L (0-40); Blood Urea Nitrogen 22 mg/dL (6-20); Calcium 9.7 mg/dL (8.5-10.5); Carbon Dioxide 23 mmol/L (22-29); Chloride 101 mmol/L (98-107); Creatinine Clr Calc Pharmacy 109.4608; Globulin 3.2 g/dL (1.3-4.6); Glomerular Filtration Rate 79.7 mL/min (90-130); Glucose 110 mg/dL (65-115); Osmolality Calculated 294 mOsm/kg (285-295); Potassium 3.7 mmol/L (3.5-5.1); Salicylate < 0.3 mg/dL (3-10); Sodium 140 mmol/L (136-145); Thyroid Stimulating Hormone 3.41 uIU/mL (0.27-4.20); Total Bilirubin 1.1 mg/dL (0.15-1.2); Total Protein 8.3 g/dL (6.6-8.7)
[2024-06-20] MEDS: ziprasidone 20 mg/mL SDV IM (01:20)
[2024-06-20] MEDS: water for injection-sterile 10 ML (01:21)
--- NOTE | 2024-06-20 01:24 | PC.NURSE ---
96 Hour Involuntary Hold Patient Rights have been reviewed with the patient and a copy of the same has been provided to him. Nutritional Services Cook oRberta was present at the bedside during the presentation of Rights.
[2024-06-20 01:28] LABS: Bilirubin Urine Negative (Negative); Blood Urine Negative (Negative); Glucose Urine UA Negative (Normal); Ketones Urine Negative (Negative); Leukocyte Esterase Urine Negative (Negative); Nitrate Urine Negative (Negative); Protein Urine Negative (Negative); Specific Gravity, Urine 1.002 (1.005-1.030); Urine Appearance Clear (CLEAR); Urine Color Yellow (Yellow); Urobilinogen Urine 0.2 mg/dL (Negative); pH Urine 6.5 (5-7)
--- NOTE | 2024-06-20 01:30 | PC.NURSE ---
Report was called to Jannie LEE in NPU; all questions and concerns were addressed at time of report.
[2024-06-20 01:33] LABS: Add Urine Microscopic? YES; Bacteria Urine None Seen /hpf; Hyaline Casts Urine 0-4 /lpf; RBC Urine 0-2 /hpf (0-2); Squamous Epithelial Cell Urine 0-5 /hpf (0-5); WBC Urine 0-5 /hpf (0-5)
[2024-06-20 01:36] LABS: Amphetamines Screen Urine Positive (Negative); Barbiturates Screen Urine Negative (Negative); Benzodiazepines Screen Urine Negative (Negative); Cocaine Screen Urine Negative (Negative); Opiate Screen Urine Negative (Negative); PCP Screen Urine Negative (Negative); THC Screen Urine Negative (Negative)
--- NOTE | 2024-06-20 02:10 | PC.ADMIT ---
[address] Admission Note: The patient,Keron Holland,29 y/o, was given written information regarding hospital policies, unit procedures and contact persons. Patient's smoking status: current some day smoker. Vital Signs - 8 hr 06/20/24 00:13 06/20/24 01:56 Temperature 98.7 F Pulse Rate 80 Respiratory Rate 18 Blood Pressure 135/78 Pulse Oximetry 98 Oxygen Delivery Method Room Air Room Air Pt. brought in by police after neighbors called stating pt. was acting bizarre and trying to sell them drugs. Pt. stated to officer he had meth [place]. Pt. was placed on a 96 hr hold. Signee and 2 MANAGER ORDER's dressed pt. out in scrubs, skin assessment completed. Pt. did not follow commands and was non verbal not responding to questions. Pt.'s V/S WNL, respirations even and non labored. Pt. admitted to doing meth, and Fentanyl to officer per ER note.
--- NOTE | 2024-06-20 02:12 | PC.NURSE ---
pt was brought down from ED and was very medicated unable to get vitals charge and physician executive aware
[2024-06-20 06:00] VITALS: BP 120/67; PULSE 63; RESP 18; O2SAT 99
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
[2024-06-20] MEDS: buprenorphine-naloxone 4-1 mg Film 2 EACH SUBLINGUAL (09:29)
[2024-06-20] MEDS: OLANZapine 5 mg ODT PO (15:33)
--- NOTE | 2024-06-20 15:38 | PC.NURSE ---
zyprexa Patient yelling out. Patient upset, saying that he is being ignored because the doctor hasn't talked with him yet. Patient says that the police lied, that he shouldn't be here, that he is being held against his will. This nurse talked to patient about appropriate behavior on the unit. Patient said, what does it even matter. Patient resistant to care, but did eventually agree to take medication. This nurse administered zyprexa 5mg ODT. POND SUPERVISOR went to search for pillow for patient. Patient offered drink and wet cloth for head.
[2024-06-20 20:23] VITALS: BP 94/56; PULSE 56; RESP 16; O2SAT 96
[2024-06-21 06:00] VITALS: BP 92/52; PULSE 63; RESP 16; TEMP 37.1; O2SAT 96
[2024-06-21] MEDS: buprenorphine-naloxone 4-1 mg Film 1 EACH SUBLINGUAL (08:05)
[2024-06-21 14:00] VITALS: BP 121/77; PULSE 81; RESP 15; O2SAT 96
--- NOTE | 2024-06-21 14:19 | PC.NURSE ---
PT refused full dose of suboxone, 2 of the 8-2mg. Patient agreed to take one film. Dr. Mendoza notified at 0805 of situation. Verbal to change medication to 4-1mg per day instead of 8-2mg per day.
--- NOTE | 2024-06-21 17:30 | W.PM.NPUPNS ---
Subjective NPU Subjective: Patient presented today reporting that he is feeling a little bit better. He was slightly better and his speech and organization but not much per staff reports and direct observation. He continued to be resistant to restarting his medication other than Suboxone after discussion of the risks, benefits and alternatives he was unclear that he understood and was unwilling to restart his medication. He also continues to be somewhat ambivalent about treatment overall including for his addiction. He denied any side effects to the medications he is taking. Mental Status Exam MSE Comments: This is a well-nourished well-developed white male in hospital scrubs with poor grooming and intense eye contact. No abnormal movements except for psychomotor retardation. Uncooperative with exam and mild to moderate distress. Speech was limited and normal rate and decreased volume. Mood not described. Affect was odd and mostly subdued. Thought process linear. But at times disorganized. Thought content: Patient did not report suicidal or homicidal ideation, there were no delusions reported but clear paranoid or persecutory thinking noted, he did not report auditory or visual hallucinations. Attention and concentration were limited and memory appeared unreliable but no more formally tested. He was alert and oriented to self. Insight, judgment and impulse control overall impaired. Vitals/I&O/Wt Last Vital Signs Temp 98.7 F 06/21/24 06:00 Pulse 66 06/21/24 20:07 Resp 18 06/21/24 20:07 BP 115/69 06/21/24 20:07 Pulse Ox 97 06/21/24 20:07 O2 Del Method Room Air 06/21/24 06:00 Data NPU 06/20/24 00:35 06/20/24 00:35 A&P Assessment and plan (1) Methamphetamine-induced mood disorder: (2) Suicidal ideation: (3) Opioid use disorder, severe, dependence: (4) Psychosis: (5) Polysubstance abuse: (6) Methamphetamine use disorder, severe, dependence: Plan 29-year-old male admitted with a history of opiate dependence along with methamphetamine addiction who was discharged about 6 weeks ago presented again with active addiction this time methamphetamine only with clear psychosis/thought disorder. 1. Evaluate for adherence to medication and then restart medication as appropriate. Thus far patient unwilling to restart anything other than Suboxone. 2. Continue every 15 minute checks for safety. 3. Encourage individual, group and milieu therapy. 4. Obtain collateral information. 5. Recommend sober living treatment after discharge at the highest level of care to which the patient is willing to commit. PDMP PDMP Reviewed: Not Reviewed Involuntary Hold Information Hold Status: Legal Status: 96 Hour Hold Date/Time Hold Expires: 06/26/24@0012 Attestations NPU Medical Necessity Statement*: Inpatient hospitalization is medically necessary and the clinically appropriate intervention at this time. We will monitor medication to make changes as indicated. Likely length of stay 4-6 days. Coding Level of Care Code Acute Code for [facility] Fwd Diagnoses Methamphetamine-induced mood disorder F15.94 Suicidal ideation R45.851 Opioid use disorder, severe, dependence F11.20 Psychosis F29 Polysubstance abuse F19.10 Methamphetamine use disorder, severe, dependence F15.20
[2024-06-21 20:07] VITALS: BP 115/69; PULSE 66; RESP 18; O2SAT 97
[2024-06-21] MEDS: OLANZapine 5 mg ODT PO (21:20)
[2024-06-21] MEDS: calcium carbonate 500 mg Chew Tablet 1000 MG PO (22:17)
[2024-06-22] MEDS: buprenorphine-naloxone 4-1 mg Film 1 EACH SUBLINGUAL (10:43)
[2024-06-22 14:00] VITALS: BP 105/59; PULSE 56; RESP 18; TEMP 36.4; O2SAT 97
--- NOTE | 2024-06-22 16:42 | P.NPUPN_ITS ---
Subjective NPU 2 Subjective: Patient presented today reporting that he is feeling all right. He continued to be resistant to restarting medication and seemed to be quite ambivalent about sober living treatment at a level appropriate with his addiction difficulties. Continue to be fairly disorganized per staff reports and direct observation. We discussed the fact that Dr. Ochoa would be here tomorrow to discuss possibilities but that likely the treatment team's position on what would be best for him is unchanged and that is active an intense sober living treatment. Mental Status Exam 2 MSE Comments: This is a well-nourished well-developed white male in hospital scrubs with poor grooming and intense eye contact. No abnormal movements except for psychomotor retardation. Uncooperative with exam and mild to moderate distress. Speech was limited and normal rate and decreased volume. Mood not described. Affect was odd and mostly subdued. Thought process linear. But at times disorganized. Thought content: Patient did not report suicidal or homicidal ideation, there were no delusions reported but clear paranoid or persecutory thinking noted, he did not report auditory or visual hallucinations. Attention and concentration were limited and memory appeared unreliable but no more formally tested. He was alert and oriented to self. Insight, judgment and impulse control overall impaired. Vitals/I&O/Wt Last Vital Signs Temp 97.5 F L 06/22/24 14:00 Pulse 56 L 06/22/24 14:00 Resp 18 06/22/24 14:00 BP 105/59 06/22/24 14:00 Pulse Ox 97 06/22/24 14:00 O2 Del Method Room Air 06/22/24 14:00 06/22/24 06/22/24 06/22/24 06:59 14:59 22:59 Intake Total 0 / 0 Balance 0 / 0 Data NPU 06/20/24 00:35 06/20/24 00:35 A&P Assessment and plan (1) Methamphetamine-induced mood disorder: (2) Suicidal ideation: (3) Opioid use disorder, severe, dependence: (4) Psychosis: (5) Polysubstance abuse: (6) Methamphetamine use disorder, severe, dependence: Plan 29-year-old male admitted with a history of opiate dependence along with methamphetamine addiction who was discharged about 6 weeks ago presented again with active addiction this time methamphetamine only with clear psychosis/thought disorder. 1. Evaluate for adherence to medication and then restart medication as appropriate. Thus far patient unwilling to restart anything other than Suboxone. 2. Continue every 15 minute checks for safety. 3. Encourage individual, group and milieu therapy. 4. Obtain collateral information. 5. Recommend sober living treatment after discharge at the highest level of care to which the patient is willing to commit. PDMP PDMP Reviewed: Not Reviewed Involuntary Hold Information 2 Hold Status: Legal Status: 96 Hour Hold Date/Time Hold Expires: 06/26/24@0012 Attestations NPU 2 Medical Necessity Statement*: Inpatient hospitalization is medically necessary and the clinically appropriate intervention at this time. We will monitor medication to make changes as indicated. Likely length of stay 4-6 days. Coding Level of Care Code Acute Code for [facility] Fwd Diagnoses Methamphetamine-induced mood disorder F15.94 Suicidal ideation R45.851 Opioid use disorder, severe, dependence F11.20 Psychosis F29 Polysubstance abuse F19.10 Methamphetamine use disorder, severe, dependence F15.20
[2024-06-22] MEDS: OLANZapine 5 mg ODT PO (21:42)
[2024-06-22 22:00] VITALS: BP 116/78; PULSE 75; RESP 18; TEMP 36.7; O2SAT 98
[2024-06-23 06:00] VITALS: BP 99/54; PULSE 47; RESP 16; O2SAT 95
[2024-06-23 14:00] VITALS: BP 119/78; PULSE 107; RESP 17; TEMP 36.9; O2SAT 97
[2024-06-23] MEDS: buprenorphine-naloxone 4-1 mg Film 1 EACH SUBLINGUAL ×2 (15:11→17:48)
--- NOTE | 2024-06-23 15:15 | PC.NURSE ---
Pt wanted this nurse to ask Dr if he could have his suboxone now after refusing it this morning. Dr. Ochoa approved, so I retimed for now and put it back to 0900 every morning.
--- NOTE | 2024-06-23 17:33 | W.PM.NPUPNS ---
Subjective NPU Subjective: 29-year-old male with a past history of polysubstance abuse admitted with reports of bizarre behavior and evidence of flight of ideas and psychosis. Patient had admitted to having taken oral amphetamines. He had reported that Suboxone had been helpful for him but he had mistakenly taken to 8 mg films daily and had run out 2 weeks early leading to the patient reporting that he began to use methamphetamine or oral amphetamine sulfate to help with managing opiate withdrawal. He had continued to report an extended history of opiate abuse as well. He had reported that he was taking olanzapine routinely. He had acknowledged a history of paranoia and also reported a history of psychosis secondary to misuse of steroids. He had stated that he was willing to consider inpatient substance abuse treatment at this time. Mental Status Exam MSE Comments: This is a well-nourished well-developed white male in hospital scrubs with poor grooming and intense eye contact. No abnormal movements except for psychomotor agitation. He was a bit intrusive, frequently interrupting other interviews in attempt to ask questions. Speech was productive in rate, with increased push, and normal volume. Mood described as okay. Affect was subdued. Thought process was linear but eventually was tangential. Thought content: Patient did not report suicidal or homicidal ideation, there were no delusions reported but continued evidence of paranoia. He did not report auditory or visual hallucinations. He did not appear to be responding to internal stimuli. Attention and concentration were limited and memory appeared unreliable but no more formally tested. He was alert and oriented to self. Insight, judgment and impulse control overall impaired. Vitals/I&O/Wt Last Vital Signs Temp 98.4 F 06/23/24 14:00 Pulse 107 H 06/23/24 14:00 Resp 17 06/23/24 14:00 BP 119/78 06/23/24 14:00 Pulse Ox 97 06/23/24 14:00 O2 Del Method Room Air 06/23/24 06:00 Weight last 48 hrs Weight 80.467 kg Data NPU 06/20/24 00:35 06/20/24 00:35 A&P Assessment and plan (1) Methamphetamine-induced mood disorder: (2) Suicidal ideation: (3) Opioid use disorder, severe, dependence: (4) Psychosis: (5) Polysubstance abuse: (6) Methamphetamine use disorder, severe, dependence: Plan 29-year-old male admitted with a history of opiate dependence along with methamphetamine addiction who was discharged about 6 weeks ago presented again with active addiction this time methamphetamine only with clear psychosis/thought disorder. 1. Patient willing to restart suboxone at previous dose and zyprexa at 5mg at night. 2. Continue every 15 minute checks for safety. 3. Encourage individual, group and milieu therapy. 4. Obtain collateral information. 5. Recommend sober living treatment after discharge at the highest level of care to which the patient is willing to commit. PDMP PDMP Reviewed: Not Reviewed Involuntary Hold Information Hold Status: Legal Status: 96 Hour Hold Date/Time Hold Expires: 06/26/24@0012 Attestations NPU Medical Necessity Statement*: Inpatient hospitalization is medically necessary and the clinically appropriate intervention at this time. We will monitor medication to make changes as indicated. Likely length of stay 4-6 days. Coding Level of Care Code Acute Code for [facility] Fwd Diagnoses Methamphetamine-induced mood disorder F15.94 Suicidal ideation R45.851 Opioid use disorder, severe, dependence F11.20 Psychosis F29 Polysubstance abuse F19.10 Methamphetamine use disorder, severe, dependence F15.20
[2024-06-23 21:06] VITALS: BP 115/67; PULSE 61; RESP 18; TEMP 36.6; O2SAT 97
[2024-06-23] MEDS: OLANZapine 5 mg ODT PO (21:21)
[2024-06-24 06:00] VITALS: BP 103/53; PULSE 54; RESP 16; TEMP 36.4; O2SAT 98
[2024-06-24] MEDS: buprenorphine-naloxone 4-1 mg Film 1 EACH SUBLINGUAL (08:00)
[2024-06-24 14:00] VITALS: BP 116/65; PULSE 65; RESP 15; TEMP 36.6; O2SAT 96
[2024-06-24] MEDS: hyDROXYzine 25 mg Capsule 50 MG PO (15:19)
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
[2024-06-24 16:11] VITALS: BP 103/53; PULSE 54; RESP 16; TEMP 36.4; O2SAT 98
[2024-06-24] MEDS: buprenorphine-naloxone 4-1 mg Film 2 EACH SUBLINGUAL (17:01)
== END 2024-06-24 17:16 | disposition home or self-care (01) | DRG 897 ==
LOC: ER 00:21 → NP 01:31
PROVIDERS: Admitting Provider Psychiatry & Neurology Psychiatry; Emergency Provider Emergency Medicine; Visit Provider Psychiatry & Neurology Psychiatry
DX: F15.24 Other stimulant dependence with stimulant-induced mood disorder (principal); R45.851 Suicidal ideations; F11.20 Opioid dependence, uncomplicated
CPT/HCPCS: 36415; 80053; 80306; 80307; 81001; 84443; 85025; 93005; 96372; 97150; 97165; 99285; J0573; J3486; J9999

== ENCOUNTER → 2024-07-08 11:04 | Outpatient (BNVA) | payer SELFPAY | PROVIDERS: Visit Provider Nurse Practitioner Psychiatric/Mental Health | DX: Z79.899 Other long term (current) drug therapy (principal) | CPT/HCPCS: 80061; 80307; 83036 ==

== ENCOUNTER 2024-12-23 18:48 | Inpatient (IN) | payer MEDICAID, SELFPAY ==
--- NOTE | 2024-12-23 18:49 | ECG_ITS ---
[facility]: 2024-12-23 Pat Name: Keron Holland Department: Room: Gender: Male Form Drafter: : 1995 Requested By: Bethany Mederos Order Number: [id number] Munira MD: Bruce Lee M.D. Measurements Intervals [place] Rate: 81 P: 71 [place]: 136 QRS: 67 QRSD: 108 T: 50 QT: 381 QTc: 444 Interpretive Statements SINUS RHYTHM INCOMPLETE RIGHT BUNDLE BRANCH BLOCK [90+ ms QRS DURATION, TERMINAL R IN V1/V2, 40+ ms S IN I/aVL/V4/V5/V6] NONSPECIFIC T-WAVE ABNORMALITY Compared to ECG 06/20/2024 00:38:52 Incomplete right bundle-branch block now present T-wave abnormality now present Electronically Signed On 12-24-2024 22:05:05 BINDERY MANAGER by Bruce Lee M.D. [email or web address]
--- OUTSIDE RECORDS SUMMARY | 2024-12-23 18:51 | XMS_ITS | Clinical Summary ---
Author Organization [facility] Address [address] [place] [address] Phone Care Team Providers Care Organ Pipe Maker Metal Name Role Phone Unavailable Primary Care Provider Unavailabl e Allergies No known active allergies Medications No known medications Active Problems Problem Noted Date Diagnosed Date Abscess of left lung without pneumonia 9 Traumatic lung cyst 09/27/2018 Family History Medical History Relation Name Comments No Known Problems Father No Known Problems Mother Relation Name Status Comments Father Mother Social History Tobacco Use Types Packs/Day Years Used Date Smoking Tobacco: Light Smoker Cigarettes Comments:Pt smokes occassion ally Alcohol Use Standard Drinks/Week Comments Not Currently 0 (1 standard drink = 0.6 oz pur e alcohol) Sex and Gender Information Value Date Recorded Sex Assigned at Not on file Legal Sex Male 10:17 AM CDT Gender Identity Not on file Sexual Orientation Not on file Last Filed Vital Signs Vital Sign Reading Time Taken Comments Blood Pressure 130/80 10/18/2018 3:05 PM CDT Pulse 55 10/18/2018 3:05 PM CDT Temperature - - Respiratory Rate - - Oxygen Saturation 98% 10/18/2018 3:05 PM CDT Inhaled Oxygen Concentration - - Weight 87.1 kg (192 lb) 10/18/2018 3:05 PM CDT Height 182.9 cm (6') 10/18/2018 3:05 PM CDT Body Mass Index 26.04 10/18/2018 3:05 PM CDT Plan of Treatment Health Maintenance Due Date Last Done Comments DTAP/TDAP/TD VACCINES (1 - Tdap) 06/11/2015 HEPATITIS B VACCINES (1 of 3 - 19+ 3-dose series) 05/22 HPV VACCINES (1 - 3-dose SCDM series) 06/11/2023 INFLUENZA VACCINE (#1) [address] [place] [address]
--- OUTSIDE RECORDS SUMMARY | 2024-12-23 18:51 | XMS_ITS | Data Portability ---
Author Organization [facility] Izabela Bird, [facility] Address [address] [facility] [address] [place] [address] Assessment No assessment recorded. Plan of Treatment Reminders Order Date Submit Date Provider Last Modified By Organization Details Last Modified Time Details Appointments None recorded. Lab None recorded. Referral endocrinolo gy referral 2023 024 [email or web address] Kristy Crystal MD, [address] [place], [address], 4 09:29:36 Procedures None recorded. Surgeries None recorded. Imaging None recorded. Medication Orders hydroxyzine HCl 50 mg tablet 2024 025 [facility]/Pharmacy #[id number] [address], [facility], [place], [address], 5 17:17:21 Patient TargetsNo targets recorded. Patient InstructionsNo instructions recorded. Reason for Referral Endocrinology Referral for H ypogonadism Referring Physician: Taiwo Aleman, Family Medicine, Encounter Date: 06/12/2023 Results Created Date Observation Date Name Description Value Unit Range Abnormal Flag Note LastModifiedBy Organization Detail LastModifiedTime Result Notes None recorded. Problems Name Problem SNOMED Code Status Onset Date Resolution Date Notes Provider Name and Address Organization Details Recorded Time Hypogonadism 55467285 [facility] 13:[facility]01 History of substance abuse 124076125 Active 2023 [facility] tr[facility] 5 13:05:56 Problem Notes None recorded. Procedures Surgical History Date Name Laterality Status Provider Name and Address Organization Details Recorded Time Tonsillectomy completed [facility], Izabela 06/12/2023 09:07:03 Imaging Results None recorded. Procedure Notes None recorded. Medical Equipment None Reported. Allergies No known drug allergies Medications Name Sig Start Date Stop Date Status Note LastModified by Organization Details LastModified Time naltrexone 50 mg tablet TAKE ONE TABLET BY MOUTH DAILY active Not Available Not Available No t Available olanzapine 5 mg tablet TAKE ONE AND ONE-HALF TABLET BY MOUTH AT BEDTIME active Not Available Not Available No t Available hydroxyzine HCl 50 mg tablet TAKE 1 TABLET BY MOUTH EVERYDAY AT BEDTIME active Not Available Not Available N ot Available quetiapine 50 mg tablet TAKE 1 TABLET BY MOUTH TWICE DAILY NEEDED FOR ANXIETY active Not Available Not Available No t Available Suboxone 8 mg-[address] STRIP UNDER THE TONGUE TWICE DAILY active Not Available Not Available No t Available Narcan 4 mg/actuation nasal spray CALL 911. USE ONE FULL SPRAY IN ONE NOSTRIL ONE TIME. REPEAT EVERY 2-3 MINUTES NEEDED IF NO OR MINIMAL RESPONSE. active Not Available Not Available No t Available Vitals Date Recorded Body height Respiratory rate Body mass index (BMI) Body weight Body temperature Heart rate Oxygen saturation Oxygen saturation in Arterial blood by Pulse oximetry Systolic And Diastolic Provider Name and Address Organization Details Last Updated DateTime 4 182.88 cm 20 /min 27.4 kg/m2 48807.0 6 g 97.4 [degF] 61 /min 99 % 99 % 110/80 mm[Hg] [facility], [facility] 4 09:06:52 Date Recorded Body height Body mass index (BMI) Body weight Oxygen saturation Oxygen saturation in Arterial blood by Pulse oximetry Heart rate Body temperature Respiratory rate Systolic And Diastolic Provider Name and Address Organization Details Last Updated DateTime 5 182.88 cm 24.6 kg/m2 52269.0 2 g 98 % 98 % 76 /min 98.6 [degF] 18 /min 140/88 mm[Hg] HARDY ALVA [facility], LTrixie. 5 16:47:18 Date Recorded Body weight Body mass index (BMI) Body height Body temperature Respiratory rate Oxygen saturation Oxygen saturation in Arterial blood by Pulse oximetry Heart rate Systolic And Diastolic Provider Name and Address Organization Details Last Updated DateTime 3 46475.0 3 g 24.3 kg/m2 182.88 cm 100 [degF] 18 /min 94 % 94 % 86 /min 136/70 mm[Hg] PRASHANT DEWAYNE [facility], L.LEmeterio 3 14:41:42 Social History Question Answer Notes LastModified by [employer] ion Details LastModified Time Tobacco Smoking Status Current Every Day Smoker ROSIE tracy [facility], L[facility] 06/12/2023 09:07:52 Do You Have An Advance Directive? No Information not available 06/12/2023 Are You Blind Or Do You Have Difficulty Seeing? No Information not available 06/12/2023 What Is Your Level Of Caffeine Consumption? Moderate Information not available 06/12/2023 Are You Deaf Or Do You Have Serious Difficulty Hearing? No Information not available 06/12/2023 What Type Of Diet Are You Following? REGULAR Information not available 06/12/2023 What Is The Highest Grade Or Level Of School You Have Completed Or The Highest Degree You Have Received? [id number] Information not available 06/12/2023 Which Of Your Hands Is Dominant? Right Information not available 06/12/2023 How Much Tobacco Do You Smoke? 1 PPW Information not available 06/12/2023 Have You Recently Traveled Abroad? No Information not available 06/12/2023 Do You Have Difficulty Walking Or Climbing Stairs? No Information not available 06/12/2023 Are You Currently In School? No Information not available 06/12/2023 Do You Have Any Dietary Restrictions? No Information not available 06/12/2023 Sex: Unknown Functional Status Question Answer Note LastModified by Organizat ion Details LastModified Time What is your level of alcohol consumption? None Information not available 06/12/2023 Are you currently employed? No Information not available 06/12/2023 Do you have transportation difficulties? No Information not available 06/12/2023 Are you able to walk independently without assistance or assistive devices? YESWOREST Information not available 06/12/2023 Do you have difficulty doing errands alone? No Information not available 06/12/2023 Are you able to care for yourself independently? Yes Information not available 06/12/2023 Do you have difficulty dressing, bathing, grooming, or toileting? No Information not available 06/12/2023 What is your exercise level? Moderate Information not available 06/12/2023 Mental Status Question Answer Note LastModified by Organization D etails LastModified Time Do you have difficulty concentrating, remembering or making decisions? No Information no t available 06/12/2023 Family History Nothing Reported Notes:Non-Contributory Famil y History, Non-Contributory Family History Medical History No medical history recorded. Immunizations Vaccine Type Date Status Note Provider Nam e and Address Organization Details Recorded Time IPV 2 completed PRASHANT tracy [facility] L.L[facility]CMariely 09/10/2022 14:37:00 IPV 7 completed PRASHANT tracy [facility] 09/10/2022 14:37:00 IPV 7 completed PRASHANT tracy [facility] 09/10/2022 14:37:00 MMR 2 completed PRASHANT tracy [facility] 09/10/2022 14:37:00 MMR 8 completed PRASHANT tracy [facility] 09/10/2022 14:37:00 Hep B, unspecified formulation 8 completed PRASHANT tracy [facility], L.LMarielyCMariely 09/10/2022 14:37:01 Hep B, unspecified formulation 7 completed PRASHANT DEWAYNE null, [facility] 09/10/2022 14:37:01 Hep B, unspecified formulation 7 completed PRASHANT DEWAYNE null, [facility] 09/10/2022 14:37:01 OPV, trivalent 8 completed PRASHANT DEWAYNE null, [facility] 09/10/2022 14:37:01 Hib (HbOC) 7 completed PRASHANT DEWAYNE null, [facility] 09/10/2022 14:37:01 Hib (HbO) 7 completed PRASHANT DEWAYNE null, [facility] 09/10/2022 14:37:01 Hib (PRP-T) 8 completed PRASHANT DEWAYNE null, [facility] 09/10/2022 14:37:01 Hib (PRP-T) 7 completed PRASHANT DEWAYNE null, [facility] 09/10/2022 14:37:01 meningococcal MCV4P 5 completed PRASHANT DEWAYNE null, [facility] 09/10/2022 14:37:01 DTaP 2 completed PRASHANT DEWAYNE null, [facility] 09/10/2022 14:37:01 DTaP 8 completed PRASHANT DEWAYNE null, [facility] 09/10/2022 14:37:01 DTaP 7 completed PRASHANT DEWAYNE null, [facility] 09/10/2022 14:37:01 DTaP 7 completed PRASHANT DEWAYNE null, [facility] 09/10/2022 14:37:01 DTaP 7 completed PRASHANT tracy [facility] 09/10/2022 14:37:01 Influenza, split virus, trivalent, preservative 8 completed Not Available [facility] 09/[facility] 02:32:34 Past Encounters Encounter ID Performer Location Encounter Start Date Encounter Closed Date Diagnosis/Indication Diagnosis SNOMED-CT Code Diagnosis ICD10 Code Diagnosis IMO Codes Diagnosis Note [id number] [facility] ([facility]) [address] [place] [phone] 09/10/2022 14:09:18 09/10/2022 15:02:24 Stiff neck 670746704 M43.6 sent to ER for further evaluation [id number] Taiwo Aleman MD [facility] ([facility]) [address] [place] [address] [phone] 06/12/2023 08:55:42 06/12/2023 09:33:49 Hypogonadism 01621335 E29.1 Informed the patient that the medication is used is not FDA approved and cannot be prescribed through the pharmacy. The patient still would like to proceed with endocrine referral. History of substance abuse 880160855 F19.11 [facility] [id number] [address] [facility] ([facility]) [address] [place] [address] [phone] 06/25/2024 16:37:37 06/25/2024 17:22:08 Insomnia 226202302 G47.09 [id number] Patient specifical ly requests seroquel. Discussed need to see primary care provider for this medication . Discussed with Dr Aleman, PCP who agrees with hydroxyzin e rx and he will see patient first available appt to discuss medication s. Patient agrees to plan but states that he feels hydroxyzin e will not work for him. Agrees to come to appt made for next Monday. Health Concerns Section Related Observation LastModified by Organization Detai ls LastModified Time None Recorded Concern Status LastModified by Organization Details LastModified Time None Recorded Advance Directives Directive N: Payers Insurance Date Sequence Insurance Name Policy Number Policy Fischer Covered Member ID Fischer Member ID Guarantor Name 06/25/2024 1 *SELF PAY* Eamon Covarrubias Skyler 06/25/2024 1 [place] Keron Covarrubias Skyler [id number] Keron Covarrubias Skyler 06/26/2024 [place] [facility] Keron Holland [id number] Keron Holland Notes Date Note Type Note Provider Name and Address Organization Details Recorded Time 09/10/2022 text/html Sore ThroatRepor flash by PatientHPIFor quality, patient reportsdifficulty swallowing. For severity, patient reportsworseningandsev ere. For associated symptoms, patient reportsfever,appetite loss,stiff neck, andmuffled voicebut reportsno cough,no nausea,no vomiting,no itching throat, andno abdominal pain. For location, patient reportsbilateralandmid line. For onset/timing, patient reportssudden. For duration, patient reportsstarted 3 day(s) ago. For context, patient reportsno known allergies.ROS as noted in the HPI GUY WALDEN [address] [place], [address], [facility] 09/10/2022 15:03:01 06/12/2023 text/html This is a 28-year-old gentleman that comes in today to establish care. He has a history of substance abuse and is Currently getting treated with Suboxone and naltrexone. Patient states that he had his testosterone checked through telehealth and it was low so he was started on enclomiphene. Patient most recently had his testosterone checked and it was back into the normal range. Is liking referral to endocrinology. Patient would prefer to continue the medication through legitimate source instead of telehealth. Taiwo Aleman MD [address] [place], [address], [facility] 06/12/2023 14:15:42 06/25/2024 text/html ROS as noted in the HPI Patient states that he's at the tail end of alcohol detox. He went to rehab in February for alcohol abuse and was given Seroquel to help him sleep. He feels like he needs Seroquel again. YANNI MOSES, [address], [address], [facility] 06/25/2024 17:20:38
--- OUTSIDE RECORDS SUMMARY | 2024-12-23 18:51 | XMS_ITS | Clinical Summary ---
Author Organization [facility] Address [address] [facility] Attn: Epic Prelude ADT NIRANJAN AHMADI [address] Care Team Providers Care Flight Dispatcher Name Role Phone Unavailable Primary Care Provider [...] Used Date Smoking Tobacco: Light Smoker Cigarettes Comments:Quit smoking: Pt sm okes occassionally Alcohol Use Standard Drinks/Week Comments Not Currently 0 (1 standard drink = 0.6 oz pur e alcohol) Sex and Gender Information Value Date Recorded Sex Assigned at Not on file Legal Sex Male 11:33 PM PRODUCT SUPPORT REP Gender Identity Not on file Sexual Orientation Not on file Last Filed Vital Signs Vital Sign Reading Time Taken Comments Blood Pressure 132/82 11/13/2021 9:23 AM CDT Pulse 68 11/13/2021 9:23 AM CDT Temperature 36.7 C (98 F) 11/13/2021 9:23 AM CDT Respiratory Rate 20 11/13/2021 9:23 AM CDT Oxygen Saturation 99% 11/13/2021 9:23 AM CDT Inhaled Oxygen Concentration - - Weight 88.5 kg (195 lb) 11/13/2021 9:23 AM CDT Height 182.9 cm (6') 11/13/2021 9:23 AM CDT Body Mass Index 26.45 11/13/2021 9:23 AM CDT Plan of Treatment Health Maintenance Due Date Last Done Comments DTAP/TDAP/TD VACCINES (1 - Tdap) 06/11/2015 HEPATITIS B VACCINES (1 of 3 - 19+ 3-dose series) 05/22 HPV VACCINES (1 - 3-dose SCDM series) 06/11/2023 INFLUENZA VACCINE (#1) 2024
--- NOTE | 2024-12-23 18:53 | W.ED.PSYCHS ---
HPI - Psych General: Chief Complaint: Psychiatric Symptoms Stated Complaint: MHE Time Seen by Provider: 12/23/24 18:49 History of Present Illness: 29-year-old man with a history of ADHD, polysubstance abuse, methamphetamine abuse, opioid abuse, nicotine dependence who presents to the emergency room with mental health issues. He says he has been doing methamphetamine and marijuana recently and has become more paranoid and agitated. Possibly having some hallucinations. He denies any homicidal or suicidal ideation. Related Data Previous Rx's ?Medication ?Instructions ?Recorded quetiapine 50 mg tablet (Seroquel) 50 mg PO BID PRN anxiety #60 tabs 12/02/24 buprenorphine 2 mg-naloxone 0.5 mg 1 film buccal .morning #11 ea 12/10/24 sublingual film (Suboxone) buprenorphine 4 mg-naloxone 1 mg 1 film buccal .morning #7 ea 12/10/24 sublingual film (Suboxone) clonidine HCl 0.1 mg tablet 0.1 mg PO BID #60 tabs 12/10/24 cyproheptadine 4 mg tablet 4 mg PO BEDTIME #14 tabs 12/10/24 Allergies Allergy/AdvReac Type Severity Reaction Status Date / Time No Known Allergies Allergy Verified 12/10/24 13:18 Review of Systems Narrative: Constitutional symptoms: Negative except as documented in HPI. Skin symptoms: Negative except as documented in HPI. Eye symptoms: Negative except as documented in HPI. ENMT symptoms: Negative except as documented in HPI. Respiratory symptoms: Negative except as documented in HPI. Cardiovascular symptoms: Negative except as documented in HPI. Gastrointestinal symptoms: Negative except as documented in HPI. Genitourinary symptoms: Negative except as documented in HPI. Musculoskeletal symptoms: Negative except as documented in HPI. Neurologic symptoms: Negative except as documented in HPI. Psychiatric symptoms: Negative except as documented in HPI. Endocrine symptoms: Negative except as documented in HPI. [facility] PFSH: Medical History (Updated 12/23/24 @ 19:35 by Bethany Garcia MD) Attention deficit hyperactivity disorder (ADHD), combined type, 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 Polysubstance abuse Kratom Methamphetamine use disorder, severe, dependence Last use 06/20/24 Opioid use disorder, severe, dependence Nicotine dependence due to vaping tobacco product Psychiatric care Social History Smoking and tobacco/nicotine status: current some day tobacco/nicotine user Substance/Drug Use: current Physical Exam Narrative: EXAM NARRATIVE: General: Alert, no acute distress. Skin: Warm, dry. Head: Normocephalic, atraumatic. Neck: Supple, trachea midline. Eye: Extraocular movements are intact. Ears, nose, mouth and throat: mucosa moist. Cardiovascular: Regular, Normal peripheral perfusion. Respiratory: Lungs are clear to auscultation, respirations are non-labored, breath sounds are equal, Symmetrical chest wall expansion. Gastrointestinal: Soft, Nontender, Non distended Musculoskeletal: Normal ROM, no deformity. Neurological: Alert and oriented, No focal neurological deficit observed. Psychiatric: Cooperative, odd affect, does express some paranoid thoughts in the fear that someone is going to come in and house and kill him. He denies suicidal or homicidal ideation at this time Course Vital Signs: Vital signs: Vital Signs Temperature 98.1 F 12/23/24 18:56 Pulse Rate 88 12/23/24 18:56 Respiratory Rate 17 12/23/24 18:56 Blood Pressure 141/74 12/23/24 18:56 Pulse Oximetry 98 12/23/24 18:56 Oxygen Delivery Me thod Room Air 12/23/24 18:56 MDM - Psych Medical Decision Making Medical decision making: Patient's reason for coming to the emergency room: Drug abuse and psychiatric concerns Social determinants: Patient is unemployed and has a long history of drug abuse. Which apparently has continued I reviewed the patient's medical record. Patient has been admitted a couple of times here previously in the year for similar complaints I reviewed the patient's current home meds Patient is supposed to be on some psychogenic meds but I do not believe he is taking them currently Alternate historians: None Differential diagnosis: Patient with reported depression and suicidal ideation. concerns for infection, alcohol intoxication, cardiac issues or other medical problems prior to psychiatric admission. Workup: labwork, ekg ordered to evaluate the pathologies and to clear the patient medically prior to psychiatric admission EKG: Time 1906. Rate 81. Normal sinus rhythm, No ST-T changes, no ectopy, normal NE & QRS intervals, This was reviewed and interpreted by myself the ER physician at 1915. Assessment of risk: - Level of risk patient does have quite a bit of high risk with his chronic drug addictions. - Was hospitalization considered? Consultation: I spoke with Dr. Mendoza who is on-call for psychiatry who agrees to admission. He recommends 96-hour hold Assessment and plan: Methamphetamine abuse Psychosis Paranoia -Admission to neuropsychiatric unit for continued evaluation and treatment. - All lab work was reviewed and interpreted personally by myself, the ER physician - Evaluation and treatment of this problem were appropriate in the emergency setting Lab Data 12/23/24 19:49 12/23/24 19:49 Laboratory Results WBC 8.60 10^3/uL (3.29-11.43) 12/23/24 19:49 RBC 4.56 10^6/uL (3.85-5.65) 12/23/24 19:49 Hgb 13.30 g/dL (11.27-16.99) 12/23/24 19:49 Hct 37.2 % (37-53) 12/23/24 19:49 MCV 81.6 fl (82-101) L 12/23/24 19:49 MCH 29.2 pg (27-33) 12/23/24 19:49 MCHC 35.8 g/dL (30-55) 12/23/24 19:49 RDW 11.8 % (12.1-15.1) L 12/23/24 19:49 Plt Count 448 10^3/cmm (157-399) H 12/23/24 19:49 MPV 9.0 fL (7.4-10.4) 12/23/24 19:49 Neut % (Auto) 67.7 % 12/23/24 19:49 Lymph % (Auto) 19.9 % 12/23/24 19:49 [place] % (Auto) 9.1 % 12/23/24 19:49 Eos % (Auto) 2.7 % 12/23/24 19:49 Baso % (Auto) 0.5 % 12/23/24 19:49 Neut # (Auto) 5.83 10^3/uL (1.8-7.7) 12/23/24 19:49 Lymph # (Auto) 1.7 10^3/uL (0.8-4.8) 12/23/24 19:49 [place] # (Auto) 0.8 10^3/uL (0.2-0.9) 12/23/24 19:49 Eos # (Auto) 0.2 10^3/uL (0.0-0.8) 12/23/24 19:49 Baso # (Auto) 0.0 10^3/uL (0.0-0.1) 12/23/24 19:49 Nucleated RBC % (auto) 0 % 12/23/24 19:49 Nucleated RBCs # 0.0 /100WBC 12/23/24 19:49 No radiology studies performed this visit Discharge Plan Discharge Patient Disposition: Admitted As Inpatient Clinical Impression: Methamphetamine use disorder, severe, dependence, Polysubstance abuse, Acute paranoia, Hallucination Condition: Stable Coding Level of Care Code ED [employer] for Kristopher Singer
[2024-12-23 18:56] VITALS: BP 141/74; PULSE 88; RESP 17; TEMP 36.7; O2SAT 98; BMI 21.7
[2024-12-23 20:03] LABS: Hematocrit 37.2 % (37-53); Hemoglobin 13.30 g/dL (11.27-16.99); Mean Corpuscular HGB Conc 35.8 g/dL (30-55); Mean Corpuscular Hemoglobin 29.2 pg (27-33); Mean Corpuscular Volume 81.6 fl (82-101); Nucleated Red Blood Cells % 0 %; Platelet Count 448 10^3/cmm (157-399); Red Blood Count 4.56 10^6/uL (3.85-5.65); White Blood Count 8.60 10^3/uL (3.29-11.43)
[2024-12-23 20:30] LABS: Alanine Aminotransferase 30 U/L (0-41); Albumin Level 4.7 g/dL (3.5-5.2); Alkaline Phosphatase 77 U/L (40-130); Anion Gap 15.1 (5-19); Aspartate Amino Transferase 40 U/L (0-40); Blood Urea Nitrogen 9 mg/dL (6-20); Calcium 9.2 mg/dL (8.5-10.5); Carbon Dioxide 27 mmol/L (22-29); Chloride 99 mmol/L (98-107); Globulin 2.6 g/dL (1.3-4.6); Glucose 91 mg/dL (65-115); Osmolality Calculated 284 mOsm/kg (285-295); Potassium 3.1 mmol/L (3.5-5.1); Sodium 138 mmol/L (136-145); Thyroid Stimulating Hormone 2.22 uIU/mL (0.27-4.20); Total Protein 7.3 g/dL (6.6-8.7)
[2024-12-23 20:31] LABS: Acetaminophen < 5.0 ug/mL (10-30); Alcohol Level < 10 mg/dL (0-10); Salicylate < 0.3 mg/dL (3-10)
--- NOTE | 2024-12-23 20:49 | PC.NURSE ---
96 HH Pt served with copy of 96 HH by this RN and primary RN. Pt A&Ox3, pt stated he has been on a 96 HH in the past and denied need for further education.
[2024-12-23 21:22] LABS: Glucose Urine UA Negative (Normal); Nitrate Urine Negative (Negative); Specific Gravity, Urine 1.015 (1.005-1.030)
[2024-12-23 21:24] LABS: Add Urine Microscopic? YES
[2024-12-23 21:29] LABS: PCP Screen Urine Negative (Negative)
[2024-12-23 23:07] VITALS: PULSE 84; RESP 18; TEMP 36.4; O2SAT 97
[2024-12-24 06:00] VITALS: BP 120/67; PULSE 72; RESP 18; TEMP 36.4; O2SAT 99
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
[2024-12-24 12:45] VITALS: BP 139/71; PULSE 83; RESP 16; TEMP 36.7; O2SAT 99
[2024-12-24 20:27] VITALS: PULSE 98; RESP 18; TEMP 36.7; O2SAT 96
[2024-12-24] MEDS: buprenorphine-naloxone 4-1 mg Film 0.5 EACH SUBLINGUAL ×2 (21:31→21:33)
[2024-12-25 06:00] VITALS: BP 104/59; PULSE 59; RESP 16; TEMP 36.3; O2SAT 99
--- NOTE | 2024-12-25 07:23 | W.PM.NPUPNS ---
Subjective NPU Subjective: Patient presented today reporting that he is feeling all right. He endorsed having some appreciation of being fairly agitated yesterday however he identified a continued desire to have his focus be on getting a job and not going to rehab or having any active treatment. He denied any side effects to his medication. Mental Status Exam MSE Comments: This is a well-nourished well-developed white male in hospital scrubs with poor grooming and intense eye contact. No abnormal movements except for significant psychomotor agitation. Somewhat cooperative with exam and mild to moderate distress. Speech was increased rate and volume and somewhat pressured. Mood described as fine. Affect was odd and energetic. Thought process linear. But at times disorganized. Thought content: Patient denied suicidal or homicidal ideation, there were no delusions reported but clear paranoid or persecutory thinking noted, he did not report auditory or visual hallucinations. Attention and concentration were impaired and memory appeared unreliable but no more formally tested. He was alert and oriented to person and place. Insight, judgment and impulse control were all impaired. Vitals/I&O/Wt Last Vital Signs Temp 97.4 F L 12/25/24 06:00 Pulse 59 L 12/25/24 06:00 Resp 16 12/25/24 06:00 BP 104/59 12/25/24 06:00 Pulse Ox 99 12/25/24 06:00 O2 Del Method Room Air 12/25/24 06:00 Weight last 48 hrs Weight 72.575 kg Data NPU 12/23/24 19:49 12/23/24 19:49 A&P Assessment and plan 1. Methamphetamine-induced mood disorder: 2. Suicidal ideation: 3. Opioid use disorder, severe, dependence: 4. Psychosis: 5. Polysubstance abuse: 6. Methamphetamine use disorder, severe, dependence: Plan: This is a 29-year-old male admitted with a history of opiate dependence along with methamphetamine addiction who was discharged about 5 months ago and presented again with active addiction with methamphetamine and Cannabis with clear psychosis/thought disorder. 1. Restart medication as appropriate. 2. Continue every 15 minute checks for safety. 3. Encourage individual, group and milieu therapy. 4. Obtain collateral information. 5. Recommend sober living treatment after discharge at the highest level of care to which the patient is willing to commit. 6. Evaluate against the backdrop of the 96-hour hold. PDMP PDMP Reviewed: Not Reviewed Involuntary Hold Information Hold Status: Legal Status: 96 Hour Hold Date/Time Hold Expires: 12-27-242005 Attestations NPU Medical Necessity Statement*: Inpatient hospitalization is medically necessary and the clinically appropriate intervention at this time. We will monitor medication to make changes as indicated. Likely length of stay 4-6 days. Coding Level of Care Code Acute Code for [facility] Fwd Diagnoses Methamphetamine-induced mood disorder F15.94 Suicidal ideation R45.851 Opioid use disorder, severe, dependence F11.20 Psychosis F29 Polysubstance abuse F19.10 Methamphetamine use disorder, severe, dependence F15.20
[2024-12-25 14:00] VITALS: BP 108/65; PULSE 68; RESP 16; TEMP 36.3; O2SAT 98
[2024-12-25 21:19] VITALS: BP 97/62; PULSE 62; RESP 16; O2SAT 97
--- NOTE | 2024-12-26 06:39 | PC.NURSE ---
pt refused vs nurse notified resp 16
--- NOTE | 2024-12-26 13:27 | W.PM.NPUPNS ---
Subjective NPU Subjective: Patient presented today reporting he is doing okay but continuing to have pressure for discharge so he can go to some job interview or try to get a job. He continues to state that that is his best treatment for his addiction. We discussed the fact that he has had jobs in recent years and he still struggling with addiction. He reports that his parents are his greatest supports and we discussed whether or not his parents would agree that the best decision for him would be to go in make sure he had employment. We discussed him reaching out to them discussing it with them and having them reach out to the treatment team. He later came and said that he would consider some rehab. He denied any side effects of the medication. Mental Status Exam MSE Comments: This is a well-nourished well-developed white male in hospital scrubs with poor grooming and intense eye contact. No abnormal movements except for significant psychomotor agitation. Somewhat cooperative with exam and mild to moderate distress. Speech was increased rate and volume and somewhat pressured. Mood described as fine. Affect was odd and energetic. Thought process linear. But at times disorganized. Thought content: Patient denied suicidal or homicidal ideation, there were no delusions reported but clear paranoid or persecutory thinking noted, he did not report auditory or visual hallucinations. Attention and concentration were impaired and memory appeared unreliable but no more formally tested. He was alert and oriented to person and place. Insight, judgment and impulse control were all impaired. Vitals/I&O/Wt Last Vital Signs Temp 97.4 F L 12/25/24 14:00 Pulse 62 12/25/24 21:19 Resp 16 12/25/24 21:19 BP 97/62 12/25/24 21:19 Pulse Ox 97 12/25/24 21:19 O2 Del Method Room Air 12/25/24 21:19 Data NPU 12/23/24 19:49 12/23/24 19:49 A&P Assessment and plan 1. Methamphetamine-induced mood disorder: 2. Suicidal ideation: 3. Opioid use disorder, severe, dependence: 4. Psychosis: 5. Polysubstance abuse: 6. Methamphetamine use disorder, severe, dependence: Plan: This is a 29-year-old male admitted with a history of opiate dependence along with methamphetamine addiction who was discharged about 5 months ago and presented again with active addiction with methamphetamine and Cannabis with clear psychosis/thought disorder. 1. Restart medication as appropriate. 2. Continue every 15 minute checks for safety. 3. Encourage individual, group and milieu therapy. 4. Obtain collateral information. 5. Recommend sober living treatment after discharge at the highest level of care to which the patient is willing to commit. 6. Evaluate against the backdrop of the 96-hour hold. PDMP PDMP Reviewed: Not Reviewed Involuntary Hold Information Hold Status: Legal Status: 96 Hour Hold Date/Time Hold Expires: 12-27-242005 Attestations NPU Medical Necessity Statement*: Inpatient hospitalization is medically necessary and the clinically appropriate intervention at this time. We will monitor medication to make changes as indicated. Likely length of stay 3-5 days. Coding Level of Care Code Acute Code for [facility] Fwd Diagnoses Methamphetamine-induced mood disorder F15.94 Suicidal ideation R45.851 Opioid use disorder, severe, dependence F11.20 Psychosis F29 Polysubstance abuse F19.10 Methamphetamine use disorder, severe, dependence F15.20
[2024-12-26 14:00] VITALS: BP 147/77; PULSE 66; RESP 15; TEMP 37; O2SAT 97
[2024-12-26 20:40] VITALS: BP 130/81; PULSE 64; RESP 17; TEMP 36.4; O2SAT 99
[2024-12-27 06:00] VITALS: BP 130/86; PULSE 66; RESP 17; TEMP 36.4; O2SAT 98
--- NOTE | 2024-12-27 12:08 | P.NPUPN_ITS ---
Subjective NPU 2 Subjective: Patient presented today reporting that things were okay but he is really struggling about still being here. Continue to lobby to staff and this underwriter mortgage loan about leaving and just getting work. He now reports that both parents are unavailable but that may be a family friend that might be available to discuss his possible disposition. He was lobbying to do a drug testing contract with this underwriter mortgage loan or something that might give him a possible way to get out of here sooner rather than later. We discussed the possibility of a medication to help with cravings. He denied any side effects to his medication. Mental Status Exam 2 MSE Comments: This is a well-nourished well-developed white male in hospital scrubs with poor grooming and intense eye contact. No abnormal movements except for resolving psychomotor agitation. More cooperative with exam and mild distress. Speech was increased rate and volume and somewhat pressured. Mood described as fine. Affect was odd and energetic. Thought process linear. But at times disorganized. Thought content: Patient denied suicidal or homicidal ideation, there were no delusions reported but clear paranoid or persecutory thinking noted, he did not report auditory or visual hallucinations. Attention and concentration were impaired and memory appeared unreliable but no more formally tested. He was alert and oriented to person and place. Insight, judgment and impulse control were all impaired. Vitals/I&O/Wt Last Vital Signs Temp 97.6 F 12/27/24 06:00 Pulse 66 12/27/24 06:00 Resp 17 12/27/24 06:00 BP 130/86 12/27/24 06:00 Pulse Ox 98 12/27/24 06:00 O2 Del Method Room Air 12/27/24 06:00 12/26/24 12/27/24 12/27/24 22:59 06:59 14:59 Intake Total 900 / 900 Balance 900 / 900 Data NPU 12/23/24 19:49 12/23/24 19:49 A&P Assessment and plan 1. Methamphetamine-induced mood disorder: 2. Suicidal ideation: 3. Opioid use disorder, severe, dependence: 4. Psychosis: 5. Polysubstance abuse: 6. Methamphetamine use disorder, severe, dependence: Plan: This is a 29-year-old male admitted with a history of opiate dependence along with methamphetamine addiction who was discharged about 5 months ago and presented again with active addiction with methamphetamine and Cannabis with clear psychosis/thought disorder. 1. Restart medication as appropriate. Patient reporting being open to possibly taking naltrexone or Vivitrol. 2. Continue every 15 minute checks for safety. 3. Encourage individual, group and milieu therapy. 4. Obtain collateral information. 5. Recommend sober living treatment after discharge at the highest level of care to which the patient is willing to commit. He is resistant to inpatient services which is what we recommend. He has wavered on whether or not he would do inpatient treatment. 6. Evaluate against the backdrop of the 96-hour hold. PDMP PDMP Reviewed: Not Reviewed Involuntary Hold Information 2 Hold Status: Legal Status: 96 Hour Hold Date/Time Hold Expires: 12-27-24 @ 2005 Attestations NPU 2 Medical Necessity Statement*: Inpatient hospitalization is medically necessary and the clinically appropriate intervention at this time. We will monitor medication to make changes as indicated. Likely length of stay 3-4 days. Coding Level of Care Code Acute Code for [facility] Fwd Diagnoses Methamphetamine-induced mood disorder F15.94 Suicidal ideation R45.851 Opioid use disorder, severe, dependence F11.20 Psychosis F29 Polysubstance abuse F19.10 Methamphetamine use disorder, severe, dependence F15.20
[2024-12-27 14:00] VITALS: BP 140/77; PULSE 70; RESP 15; TEMP 36.4; O2SAT 99
[2024-12-27] MEDS: alum-mag-hydroxide-sime 30 mL UDC PO (19:38)
[2024-12-27 20:34] VITALS: BP 135/89; PULSE 70; RESP 17; TEMP 36.7; O2SAT 97
[2024-12-28] MEDS: buprenorphine-naloxon 2-0.5MG FILM 1 EACH SUBLINGUAL ×2 (01:54→20:24)
--- NOTE | 2024-12-28 01:57 | PC.NURSE ---
12/28/[address] Mendoza for Suboxone 1/4 to 1/2 dose (of 4-1) for extreme vomiting spells/ inability to cease. Pyxis supply indicated such was on Med/Surg floor, et [employer] Chelsy was able to bring Suboxone 2-0.5. She accompanied during administration. Keron is currently resting in bed, nursing continues to monitor for needs et changes.
--- NOTE | 2024-12-28 03:55 | PC.NURSE ---
12/28/24 0355 Keron is resting soundly absent of s/sx of distress. Nursing continues to monitor for needs et changes.
[2024-12-28 08:28] VITALS: BP 114/71; PULSE 69; RESP 16; TEMP 36.9; O2SAT 97
[2024-12-28 14:00] VITALS: BP 123/82; PULSE 104; RESP 16; TEMP 36.2; O2SAT 97
--- NOTE | 2024-12-28 17:58 | W.PM.NPUPNS ---
Subjective NPU Subjective: Patient presented today reporting that he is doing better. He reports he did speak to his father and that they are discussing him going to a sober living program. He reports an openness to work with the social work team on Monday towards some of the ideas they had. They did talk to the people at [facility] when they came to visit another client earlier. He endorses being prepared to do something like that to get things back on track. He was much more accommodating and was thankful because he had some difficulty the previous night with likely Suboxone withdrawal and we made some as needed Suboxone available so that he can make it through the withdrawal process without the emesis that he had yesterday. He denied any side effects of the medication. Mental Status Exam MSE Comments: This is a well-nourished well-developed white male in hospital scrubs with improved grooming and intense eye contact. No abnormal movements. More cooperative with exam in mild distress. Speech was : Normal rate and volume. Mood described as fine. Affect was odd but congruent. Thought process linear. But at times and more organized. Thought content: Patient denied suicidal or homicidal ideation, there were no delusions reported but clear paranoid or persecutory thinking noted, he did not report auditory or visual hallucinations. Attention and concentration were impaired and memory appeared unreliable but no more formally tested. He was alert and oriented to person and place. Insight, judgment and impulse control were all impaired. Vitals/I&O/Wt Last Vital Signs Temp 98.3 F 12/28/24 20:40 Pulse 100 12/28/24 20:40 Resp 18 12/28/24 20:40 BP 128/71 12/28/24 20:40 Pulse Ox 96 12/28/24 20:40 O2 Del Method Room Air 12/28/24 20:40 Weight last 48 hrs Weight 78.585 kg Data NPU 12/23/24 19:49 12/23/24 19:49 A&P Assessment and plan 1. Methamphetamine-induced mood disorder: 2. Suicidal ideation: 3. Opioid use disorder, severe, dependence: 4. Psychosis: 5. Polysubstance abuse: 6. Methamphetamine use disorder, severe, dependence: Plan: This is a 29-year-old male admitted with a history of opiate dependence along with methamphetamine addiction who was discharged about 5 months ago and presented again with active addiction with methamphetamine and Cannabis with clear psychosis/thought disorder. 1. Restart medication as appropriate. Patient reporting being open to possibly taking naltrexone or Vivitrol. 2. Continue every 15 minute checks for safety. 3. Encourage individual, group and milieu therapy. 4. Obtain collateral information. 5. Recommend sober living treatment after discharge at the highest level of care to which the patient is willing to commit. He is resistant to inpatient services which is what we recommend. He has wavered on whether or not he would do inpatient treatment. 6. Evaluate against the backdrop of the 96-hour hold. PDMP PDMP Reviewed: Not Reviewed Involuntary Hold Information Hold Status: Legal Status: 96 Hour Hold Date/Time Hold Expires: 21 day filed Attestations NPU Medical Necessity Statement*: Inpatient hospitalization is medically necessary and the clinically appropriate intervention at this time. We will monitor medication to make changes as indicated. Likely length of stay 2 to 3 days. Coding Level of Care Code Acute Code for [facility] Fwd Diagnoses Methamphetamine-induced mood disorder F15.94 Suicidal ideation R45.851 Opioid use disorder, severe, dependence F11.20 Psychosis F29 Polysubstance abuse F19.10 Methamphetamine use disorder, severe, dependence F15.20
[2024-12-28 20:40] VITALS: BP 128/71; PULSE 100; RESP 18; TEMP 36.8; O2SAT 96
[2024-12-28 21:25] VITALS: BMI 23.5
[2024-12-29 06:00] VITALS: BP 120/68; PULSE 62; RESP 16; TEMP 36.8; O2SAT 99
[2024-12-29] MEDS: buprenorphine-naloxon 2-0.5MG FILM 1 EACH SUBLINGUAL (12:37)
[2024-12-29 13:31] VITALS: BP 133/77; PULSE 110; RESP 16; TEMP 36.7; O2SAT 98
--- NOTE | 2024-12-29 14:15 | P.NPUPN_ITS ---
Subjective NPU 2 Subjective: Patient presented today reporting that he is doing better. He reports he did speak to his father and that they are discussing him going to a sober living program. He reports a plan to work with the social work team on Monday towards returning to [facility] and was visited by one of their leaders. He endorses being prepared to get things back on track. We discussed the likelihood of discharge in the next 48 hours. He denied any side effects of the medication. Mental Status Exam 2 MSE Comments: This is a well-nourished well-developed white male in hospital scrubs with improved grooming and intense eye contact. No abnormal movements. More cooperative with exam in mild distress. Speech was : Normal rate and volume. Mood described as fine. Affect was odd but congruent. Thought process linear. But at times and more organized. Thought content: Patient denied suicidal or homicidal ideation, there were no delusions reported or noted, he did not report auditory or visual hallucinations. Attention and concentration were impaired and memory appeared unreliable but no more formally tested. He was alert and oriented x 3. Insight, judgment and impulse control were all limited but improving. Vitals/I&O/Wt Last Vital Signs Temp 98.0 F 12/29/24 13:31 Pulse 110 H 12/29/24 13:31 Resp 16 12/29/24 13:31 BP 133/77 12/29/24 13:31 Pulse Ox 98 12/29/24 13:31 O2 Del Method Room Air 12/29/24 13:31 Weight last 48 hrs Weight 78.585 kg Data NPU 12/23/24 19:49 12/23/24 19:49 A&P Assessment and plan 1. Methamphetamine-induced mood disorder: 2. Suicidal ideation: 3. Opioid use disorder, severe, dependence: 4. Psychosis: 5. Polysubstance abuse: 6. Methamphetamine use disorder, severe, dependence: Plan: This is a 29-year-old male admitted with a history of opiate dependence along with methamphetamine addiction who was discharged about 5 months ago and presented again with active addiction with methamphetamine and Cannabis with clear psychosis/thought disorder. 1. Restart medication as appropriate. Patient reporting being open to possibly taking naltrexone or Vivitrol. 2. Continue every 15 minute checks for safety. 3. Encourage individual, group and milieu therapy. 4. Obtain collateral information. 5. Recommend sober living treatment after discharge at the highest level of care to which the patient is willing to commit. He is resistant to inpatient services which is what we recommend. He has wavered on whether or not he would do inpatient treatment. Was accepted to sober living program with ability to be taken as early as tomorrow evening. 6. Evaluate against the backdrop of the 96-hour hold. PDMP PDMP Reviewed: Not Reviewed Involuntary Hold Information 2 Hold Status: Legal Status: 96 Hour Hold Date/Time Hold Expires: 21 day filed Attestations NPU 2 Medical Necessity Statement*: Inpatient hospitalization is medically necessary and the clinically appropriate intervention at this time. We will monitor medication to make changes as indicated. Likely length of stay 1-3 days. Coding Level of Care Code Acute Code for [facility] Fwd Diagnoses Methamphetamine-induced mood disorder F15.94 Suicidal ideation R45.851 Opioid use disorder, severe, dependence F11.20 Psychosis F29 Polysubstance abuse F19.10 Methamphetamine use disorder, severe, dependence F15.20
[2024-12-29 20:49] VITALS: BP 120/69; PULSE 76; RESP 16; TEMP 36.5; O2SAT 98
[2024-12-30 06:00] VITALS: BP 127/60; PULSE 71; RESP 16; TEMP 37.1; O2SAT 99
[2024-12-30] MEDS: buprenorphine-naloxon 2-0.5MG FILM 1 EACH SUBLINGUAL (07:40)
--- NOTE | 2024-12-30 12:18 | P.NPUDS_ITS ---
Diagnoses at Discharge Discharge Diagnosis 1. Methamphetamine-induced mood disorder: 2. Opioid use disorder, severe, dependence: 3. Psychosis: 4. Polysubstance abuse: 5. Methamphetamine use disorder, severe, dependence: Reason for Visit Reason for Visit: MHE Involuntary Hold Information Hold Status: Legal Status: 96 Hour Hold Date/Time Hold Expires: 21 day filed Discharge Data Studies Completed and Pending: Laboratory Results WBC 8.60 10^3/uL (3.2 9-11.43) 12/23/24 19:49 RBC 4.56 10^6/uL (3.8 5-5.65) 12/23/24 19:49 Hgb 13.30 g/dL (11.27 -16.99) 12/23/24 19:49 Hct 37.2 % (37-53) 12/23/24 19:49 MCV 81.6 fl (82-101) L 12/23/24 19:49 MCH 29.2 pg (27-33) 12/23/24 19:49 MCHC 35.8 g/dL (30-55) 12/23/24 19:49 RDW 11.8 % (12.1-15.1 ) L 12/23/24 19:49 Plt Count 448 10^3/cmm (157 -399) H 12/23/24 19:49 MPV 9.0 fL (7.4-10.4) 12/23/24 19:49 Neut % (Auto) 67.7 % 12/23/24 19:49 Lymph % (Auto) 19.9 % 12/23/24 19:49 [place] % (Auto) 9.1 % 12/23/24 19:49 Eos % (Auto) 2.7 % 12/23/24 19:49 Baso % (Auto) 0.5 % 12/23/24 19:49 Neut # (Auto) 5.83 10^3/uL (1.8 -7.7) 12/23/24 19:49 Lymph # (Auto) 1.7 10^3/uL (0.8- 4.8) 12/23/24 19:49 [place]wood # (Auto) 0.8 10^3/uL (0.2- 0.9) 12/23/24 19:49 Eos # (Auto) 0.2 10^3/uL (0.0- 0.8) 12/23/24 19:49 Baso # (Auto) 0.0 10^3/uL (0.0- 0.1) 12/23/24 19:49 Nucleated RBC % (a uto) 0 % 12/23/24 19:49 Nucleated RBCs # 0.0 /100WBC 12/23/24 19:49 Sodium 138 mmol/L (136-1 45) 12/23/24 19:49 Potassium 3.1 mmol/L (3.5-5 .1) L 12/23/24 19:49 Chloride 99 mmol/L (98-107 ) 12/23/24 19:49 Carbon Dioxide 27 mmol/L (22-29) 12/23/24 19:49 Anion Gap 15.1 (5-19) 12/23/24 19:49 BUN 9 mg/dL (6-20) 12/23/24 19:49 Creatinine 0.9 mg/dL (0.7-1. 2) 12/23/24 19:49 GFR Calculation 100.5 mL/min (90- 130) 12/23/24 19:49 Glucose 91 mg/dL (65-115) 12/23/24 19:49 Calculated Osmolal ity 284 mOsm/kg (285- 295) L 12/23/24 19:49 Calcium 9.2 mg/dL (8.5-10 .5) 12/23/24 19:49 Total Bilirubin 1.0 mg/dL (0.15-1 .2) 12/23/24 19:49 AST 40 U/L (0-40) 12/23/24 19:49 ALT 30 U/L (0-41) 12/23/24 19:49 Alkaline Phosphata se 77 U/L (40-130) 12/23/24 19:49 Total Protein 7.3 g/dL (6.6-8.7 ) 12/23/24 19:49 Albumin 4.7 g/dL (3.5-5.2 ) 12/23/24 19:49 Globulin 2.6 g/dL (1.3-4.6 ) 12/23/24 19:49 TSH 2.22 uIU/mL (0.27 -4.20) 12/23/24 19:49 Urine Color Yellow (Yellow) 12/23/24 21:16 Urine Appearance Clear (CLEAR) 12/23/24 21:16 Urine pH 6.0 (5-7) 12/23/24 21:16 Ur Specific Gravit y 1.015 (1.005-1.0 30) 12/23/24 21:16 Urine Protein Negative (Negati ve) 12/23/24 21:16 Urine Glucose (UA) Negative (Normal ) 12/23/24 21:16 Urine Ketones Trace (Negative) 12/23/24 21:16 Urine Blood Negative (Negati ve) 12/23/24 21:16 Urine Nitrate Negative (Negati ve) 12/23/24 21:16 Urine Bilirubin Negative (Negati ve) 12/23/24 21:16 Urine Urobilinogen 1.0 mg/dL (Negati ve) 12/23/24 21:16 Ur Leukocyte Trice ase Negative (Negati ve) 12/23/24 21:16 Urine RBC 0-2 /hpf (0-2) 12/23/24 21:16 Urine WBC 0-5 /hpf (0-5) 12/23/24 21:16 Ur Squamous Epith Cells 0-5 /hpf (0-5) 12/23/24 21:16 Amorphous Sediment Not Reportable 12/23/24 21:16 Urine Bacteria None seen /hpf (N ONE) 12/23/24 21:16 Hyaline Casts 0.40 /lpf 12/23/24 21:16 Salicylates < 0.3 mg/dL (3-10 ) L 12/23/24 19:49 Urine Opiates Scre en Negative ng/mL (N egative) 12/23/24 21:16 Acetaminophen < 5.0 ug/mL (10-3 0) L 12/23/24 19:49 Ur Barbiturates Sc reen Negative ng/mL (N egative) 12/23/24 21:16 Ur Phencyclidine S crn Negative ng/mL (N egative) 12/23/24 21:16 Ur Amphetamines Sc reen Positive ng/mL (N egative) H 12/23/24 21:16 U Benzodiazepines Scrn Positive ng/mL (N egative) H 12/23/24 21:16 Urine Cocaine Scre en Negative ng/mL (N egative) 12/23/24 21:16 U Marijuana (THC) Screen Positive ng/mL (N egative) H 12/23/24 21:16 Ethyl Alcohol < 10 mg/dL (0-10) 12/23/24 19:49 Vitals: Last Vital Signs Temp 98.8 F 12/30/24 06:00 Pulse 71 12/30/24 06:00 Resp 16 12/30/24 06:00 BP 127/60 12/30/24 06:00 Pulse Ox 99 12/30/24 06:00 O2 Del Method Room Air 12/30/24 06:00 Discharge Plan Discharge Patient Disposition: Home Condition: Stable Prescriptions: New buprenorphine-naloxone 2-0.5 mg Film 1 film sublingual DAILY PRN (Reason: severe withdrawal symptoms) 30 Days Qty: 30 0RF Continued clonidine HCl 0.1 mg tablet 0.1 mg PO BID Qty: 60 3RF Rx Instructions: May take one tablet twice per day as needed for opioid withdrawal quetiapine [Seroquel] 50 mg tablet 50 mg PO BID PRN (Reason: anxiety) Qty: 60 1RF Rx Instructions: May take one tablet twice per day as needed for anxiety Discharge Order = DC NOW: Discharge Order (Routine); Ordered 12/30/24 Ordered By: Brendan Mendoza [facility] [Other] - 12/30/24 4:00 pm Concha Lackey PMHNP [Staff Physician, Psychiatry] Discharge Diet: Regular Discharge Activity: Resume usual activity Patient Instructions: Opioid Safety, Patient Portal & [facility] Instructions Discharge Attestations NPU Time Spent in Discharge Care*: less than 30 min Specific Discharge Activities: Specific discharge activities: educating patient, discussing with manager case/social workers/dc planners, documenting/other paperwork and evaluating patient/reviewing data Coding Level of Care Code Acute Code for [facility] Fwd Diagnoses Methamphetamine-induced mood disorder F15.94 Suicidal ideation R45.851 Opioid use disorder, severe, dependence F11.20 Psychosis F29 Polysubstance abuse F19.10 Methamphetamine use disorder, severe, dependence F15.20
[2024-12-30 12:40] VITALS: BP 127/60; PULSE 71; RESP 16; TEMP 37.1; O2SAT 99
[2024-12-30 14:00] VITALS: BP 132/78; PULSE 86; RESP 16; TEMP 36.8; O2SAT 99
== END 2024-12-30 16:16 | disposition home or self-care (01) | DRG 773 ==
LOC: ER 21:36 → NP 22:44
PROVIDERS: Admitting Provider Psychiatry & Neurology Psychiatry; Emergency Provider Emergency Medicine; Visit Provider Psychiatry & Neurology Psychiatry
DX: F15.259 Other stimulant dependence with stimulant-induced psychotic disorder, unspecified (principal); F15.24 Other stimulant dependence with stimulant-induced mood disorder; R45.851 Suicidal ideations; F19.10 Other psychoactive substance abuse, uncomplicated; F12.20 Cannabis dependence, uncomplicated; F17.200 Nicotine dependence, unspecified, uncomplicated; F11.23 Opioid dependence with withdrawal
CPT/HCPCS: 36415; 80053; 80306; 80307; 81001; 84443; 85025; 93005; 97150; 97165; 99285; J0572; J0573; J9999; Q0162

== ENCOUNTER 2025-01-07 10:00 | Observation (INO) | payer MEDICAID, SELFPAY ==
[2025-01-07] VITALS (34 sets, daily range): BP systolic 84–167; BP diastolic 38–96; PULSE 60–103; RESP 8–19; TEMP 36.7–36.8; O2SAT 95–100
--- NOTE | 2025-01-07 10:26 | ED_ITS ---
HPI - Overdose 2 General: Chief Complaint: Overdose Stated Complaint: possible overdose Time Seen by Provider: 01/07/25 10:07 History of Present Illness: 29-year-old male history of narcotics ab use. Patient states he took several doses of Suboxone and Seroquel today. He came to outpatient treatment was very sedated he was brought here to evaluate. Falls asleep while discussing his history. He he is arousable and redirectable. No respiratory distress. Related Data Previous Rx's ?Medication ?Instructions ?Recorded clonidine HCl 0.1 mg tablet 0.1 mg PO BID #60 tabs buprenorphine 2 mg-naloxone 0.5 mg 1 film sublingual D AILY PRN severe 12/30/24 sublingual film withdrawal symptoms 30 days #30 ea quetiapine 50 mg tablet (Seroquel) 50 mg PO BID PRN an xiety #60 tabs 12/30/24 Allergies Allergy/AdvReac Type Severity Reaction Status Date / Time No Known Allergies Allergy Verified 01/06/25 14:01 Review of Systems 2 Const: Denies: fever(s) or chills Card: Denies: chest pain Resp: Denies: dyspnea GI: Denies: abdominal pain : Denies: dysuria, urinary frequency or urinary urgency Musc: Denies: neck pain or back pain Skin/Breast: Denies: rash PFSH ED 2 PFSH: Medical History Attention deficit hyperactivity disorder (ADHD), combined type, 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 Polysubstance abuse [facility] Methamphetamine use disorder, severe, dependence Last use 06/20/24 Opioid use disorder, severe, dependence Nicotine dependence due to vaping tobacco product Psychiatric care Social History Smoking and tobacco/nicotine status: current some day tobacco/nicotine user Substance/Drug Use: current Physical Exam 2 Const: COMMON NORMALS: no acute distress GENERAL APPEARANCE: cooperative, comfortable and lethargic NUTRITIONAL APPEARANCE: thin O RIENTATION/CONSCIOUSNESS: Yes lethargic HENMT: COMMON NORMALS: normocephalic, atraumatic and hearing grossly normal bilaterally HEAD & SCALP: normocephalic and atraumatic Resp: COMMON NORMALS: normal respiratory effort, No retractions, No use of accessory muscles and clear to auscultation bilaterally AUSCULTATION: clear to auscultation bilaterally Cardio: COMMON NORMALS: regular rate, regular rhythm and No murmurs present (Cardio) RATE: regular rate RHYTHM: regular rhythm GI: COMMON NORMALS: Soft to palpation and No hepatosplenomegaly present A USCULTATION: Yes normoactive bowel sounds PALPATION: Yes Soft to palpation, No Tenderness to palpation present (GI), No Guarding due to palpation present (GI) and Yes No hepatosplenomegaly present Extremity: COMMON NORMALS: normal to inspection, capillary refill normal, no clubbing, cyanosis or edema, no calf tenderness and no pedal edema Neuro: SENSORIUM/ORIENTATION: Yes lethargic Skin: COMMON NORMALS: no rashes or lesions noted GENERAL SKIN EXAM: no rashes or lesions noted Course 2 Vital Signs: Vital signs: Vital Signs Temperature 97.5 F L 01/08/25 06:30 Pulse Rate 86 01/08/25 10:50 Respiratory Rate 18 01/08/25 10:50 Blood Pressure 115/67 01/08/25 10:50 Pulse Oximetry 95 01/08/25 10:50 Oxygen Delivery Me thod Room Air 01/08/25 09:47 MDM - Overdose Medical Decision Making Initially patient was arousable and then progressively became more lethargic and sleepy his vital signs remained stable he briefly did require oxygen support. We gave him a single dose of Narcan he woke up very briefly and then dozed back off again. Since he is on Suboxone would require pretty high doses of Narcan to wake him up. At this point we will just observe he also taken some Seroquel. Discussed with the hospitalist will admit to monitor. His other toxicologies showed positive for benzodiazepines. Patient is hemodynamically stable. When he first arrived he was questioned directly on suicidal homicidal intent he denies. He states he was just taking medicine for the euphoric effect. Medical Records I reviewed the patient's medical records. Lab Data I reviewed the patient's lab results. 01/07/25 10:32 01/08/25 04:44 Radiology Impressions Chest X-Ray 01/07/25 10:55 IMPRESSION: Stable chest without acute abnormality. Laboratory Results WBC 15.41 10^3/uL (3.29-11.43) H 01/07/25 10:32 RBC 4.58 10^6/uL (3.85-5.65) 01/07/25 10:32 Hgb 13.10 g/dL (11.27-16.99) 01/07/25 10:32 Hct 38.1 % (37-53) 01/07/25 10:32 MCV 83.2 fl (82-101) 01/07/25 10:32 MCH 28.6 pg (27-33) 01/07/25 10:32 MCHC 34.4 g/dL (30-55) 01/07/25 10:32 RDW 12.1 % (12.1-15.1) 01/07/25 10:32 Plt Count 335 10^3/cmm (157-399) 01/07/25 10:32 MPV 8.7 fL (7.4-10.4) 01/07/25 10:32 Neut % (Auto) 68.1 % 01/07/25 10:32 Lymph % (Auto) 22.1 % 01/07/25 10:32 [place]flower % (Auto) 7.8 % 01/07/25 10:32 Eos % (Auto) 1.2 % 01/07/25 10:32 Baso % (Auto) 0.3 % 01/07/25 10:32 Neut # (Auto) 10.50 10^3/uL (1.8-7.7) H 01/07/25 10:32 Lymph # (Auto) 3.4 10^3/uL (0.8-4.8) 01/07/25 10:32 Sunflower # (Auto) 1.2 10^3/uL (0.2-0.9) H 01/07/25 10:32 Eos # (Auto) 0.2 10^3/uL (0.0-0.8) 01/07/25 10:32 Baso # (Auto) 0.1 10^3/uL (0.0-0.1) 01/07/25 10:32 Nucleated RBC % (auto) 0 % 01/07/25 10:32 Nucleated RBCs # 0.0 /100WBC 01/07/25 10:32 Sodium 136 mmol/L (136-145) 01/07/25 10:32 Potassium 3.7 mmol/L (3.5-5.1) 01/07/25 10:32 Chloride 101 mmol/L (98-107) 01/07/25 10:32 Carbon Dioxide 29 mmol/L (22-29) 01/07/25 10:32 Anion Gap 9.7 (5-19) 01/07/25 10:32 BUN 13 mg/dL (6-20) 01/07/25 10:32 Creatinine 0.7 mg/dL (0.7-1.2) 01/07/25 10:32 GFR Calculation 134.3 mL/min (90-130) H 01/07/25 10:32 Glucose 96 mg/dL (65-115) 01/07/25 10:32 Calculated Osmolality 282 mOsm/kg (285-295) L 01/07/25 10:32 Calcium 8.5 mg/dL (8.5-10.5) 01/07/25 10:32 Total Bilirubin 0.2 mg/dL (0.15-1.2) 01/07/25 10:32 AST 34 U/L (0-40) 01/07/25 10:32 ALT 44 U/L (0-41) H 01/07/25 10:32 Alkaline Phosphatase 66 U/L (40-130) 01/07/25 10:32 Total Protein 6.6 g/dL (6.6-8.7) 01/07/25 10:32 Albumin 4.3 g/dL (3.5-5.2) 01/07/25 10:32 Globulin 2.3 g/dL (1.3-4.6) 01/07/25 10:32 TSH 6.57 uIU/mL (0.27-4.20) H 01/07/25 10:32 Salicylates < 0.3 mg/dL (3-10) L 01/07/25 10:32 Acetaminophen < 5.0 ug/mL (10-30) L 01/07/25 10:32 Ethyl Alcohol < 10 mg/dL (0-10) 01/07/25 10:32 All radiology interpretation(s) finalized by discharge ED provider radiology interpretation(s): No acute findings no infiltrates no masses no pneumothorax no opacities. Mild hyperinflation Discharge Plan Discharge Patient Disposition: Admitted As Inpatient Admit Provider: Andrew Anne Clinical Impression: Polysubstance abuse, Opioid use disorder, severe, dependence, Drug overdose Condition: Stable Discharge Diet: Usual diet Discharge Activity: Resume usual activity Coding Level of Care Code ED Rn Pain Management for Kristopher Singer
[2025-01-07 10:38] LABS: Hematocrit 38.1 % (37-53); Hemoglobin 13.10 g/dL (11.27-16.99); Mean Corpuscular HGB Conc 34.4 g/dL (30-55); Mean Corpuscular Hemoglobin 28.6 pg (27-33); Mean Corpuscular Volume 83.2 fl (82-101); Nucleated Red Blood Cells % 0 %; Platelet Count 335 10^3/cmm (157-399); Red Blood Count 4.58 10^6/uL (3.85-5.65); White Blood Count 15.41 10^3/uL (3.29-11.43)
--- NOTE | 2025-01-07 10:55 | XR_ITS ---
WS: [id number] XR chest 1V portable [id number] REASON FOR EXAM: Dyspnea FINDINGS: Chest is unchanged compared to 10/23/2019. Heart and mediastinum are within normal limits. Calcified granulomas disease bilaterally. Lungs mildly hypoexpanded. No acute pulmonary parenchymal or pleural abnormality is identified. No significant abnormality of the bony thorax. XR/XR chest 1V portable [id number] IMPRESSION: Stable chest without acute abnormality.
[2025-01-07 11:16] LABS: Alanine Aminotransferase 44 U/L (0-41); Albumin Level 4.3 g/dL (3.5-5.2); Alkaline Phosphatase 66 U/L (40-130); Anion Gap 9.7 (5-19); Aspartate Amino Transferase 34 U/L (0-40); Blood Urea Nitrogen 13 mg/dL (6-20); Calcium 8.5 mg/dL (8.5-10.5); Carbon Dioxide 29 mmol/L (22-29); Chloride 101 mmol/L (98-107); Globulin 2.3 g/dL (1.3-4.6); Glucose 96 mg/dL (65-115); Osmolality Calculated 282 mOsm/kg (285-295); Potassium 3.7 mmol/L (3.5-5.1); Sodium 136 mmol/L (136-145); Thyroid Stimulating Hormone 6.57 uIU/mL (0.27-4.20); Total Protein 6.6 g/dL (6.6-8.7)
[2025-01-07 11:18] LABS: Acetaminophen < 5.0 ug/mL (10-30); Alcohol Level < 10 mg/dL (0-10); Salicylate < 0.3 mg/dL (3-10)
--- NOTE | 2025-01-07 13:04 | PC.NURSE ---
PATIENT AWAKE BUT NOT ORIENTED AT 1259. PATIENT IS UNABLE TO TELL ME THE YEAR (BUT STATES HIS BIRTHDATE), PATIENT REPORTS HE KNOWS WHERE HE IS WHEN ASKED, HE REPORTS HE IS AT THE PLACE WHERE THEY DO THE THINGS WITH ANIMALS . PATIENT HAS EQUAL NONLABORED RESPIRATIONS AT THIS TIME.
--- NOTE | 2025-01-07 14:38 | PC.NURSE ---
PT IS AWAKE BUT NOT ALERT. PT KEEPS ASKING WHERE HE IS AND WHAT'S GOING ON. NURSE EDUCATED PT WE ARE KEEPING PT D/T POSS OVERDOSE. PT STATES HE IS SUPPOSE TO GO TO REHAB, NURSE STATED I TALKED TO YOU EARLIER AND HELPED YOU INTO THE HOSPITAL, YOU DONT REMEMBER, DO YOU? PT DOES NOT REMEMBER ENTERING HOSPITAL.
--- NOTE | 2025-01-07 16:49 | P.HP_ITS ---
Providers/Chief Complaint 2 Admitting Physician: Andrew Anne MD Chief Complaint: possible overdose History of Present Illness Keron Holland is a 29 year old male who presented to the ER with reports of altered mental status. Patient had gone to group clinic where he was noted to be very altered. Into the ER, he was very sleepy, but mildly arousable. Some analgesia was tried, which helped him waking up temporarily. Consequently, he was admitted for further evaluation. En route to the ER, patient admits to taking some to 20 pills of bromazolam in the last 1 week, though he was not able to remember the dose and/or frequency of the taken medication. Review of Systems 2 Narrative: General: Negative for fever, headaches, dizziness or weakness. Respiration: Negative for shortness of breath, cough or wheezing. CVS: Negative for chest pain, palpitations or dyspnea on exertion. GI: Negative for nausea, vomiting, or diarrhea/constipation. UGS: Negative for dysuria, urgency or increased urinary frequency. All other systems reviewed, and essentially negative, except as in the HPI. Medications/Allergies Home Medications ?Medication ?Instructions ?Recorded ?Confirmed ?Last Taken ?Type clonidine HCl 0.1 mg tablet 0.1 mg PO BID #60 tabs 01/07/25 01/07/25 Rx buprenorphine 2 mg-naloxone 0.5 mg 1 film sublingual D AILY PRN severe 12/30/24 01/07/25 01/07/25 Rx sublingual film withdrawal symptoms 30 days #30 ea quetiapine 50 mg tablet (Seroquel) 50 mg PO BID PRN an xiety #60 tabs 12/30/24 01/07/25 01/07/25 Rx Allergies Allergy/AdvReac Type Severity Reaction Status Date / Time No Known Allergies Allergy Verified 01/06/25 14:01 PFSH Acute 2 PFSH: Medical History Attention deficit hyperactivity disorder (ADHD), combined type, 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 Polysubstance abuse Kratom Methamphetamine use disorder, severe, dependence Last use 06/20/24 Opioid use disorder, severe, dependence Nicotine dependence due to vaping tobacco product Psychiatric care Social History Smoking and tobacco/nicotine status: current some day tobacco/nicotine user Substance/Drug Use: current Vitals/I&O/Wt Last Vital Signs Temp 98.0 F 01/07/25 10:05 Pulse 75 01/07/25 15:15 Resp 18 01/07/25 15:15 BP 156/96 01/07/25 14:30 Pulse Ox 97 01/07/25 14:30 O2 Del Method Room Air 01/07/25 14:30 Weight last 48 hrs Weight 83.915 kg Physical Exam 2 Narrative: General: Somewhat drowsy, but moderately awake and alert. No obvious respiratory distress. Neuro/Psych: Cranial nerves II to XII grossly intact. No obvious focal deficits. Chest/Resp: Bilateral equal air entry; chest clinically clear. CVS: Rhythm: Regular heart rate and rhythm. No obvious murmurs appreciated. GI: Soft and non-tender abdomen. No obvious organomegaly. Extremities: Bilateral equal pulses. No obvious pitting pedal edema. Skin: No obvious skin rashes or significant lesions. Moist mucous membranes. MSK: No obvious joint effusions or bony deformities noted. No apparent muscle tenderness. Data 01/07/25 10:32 01/07/25 10:32 A&P Assessment and plan 1. Narcosis: 2. Altered mental status: 3. Polysubstance abuse: Plan: Observe in ICU. Monitor closely. Rehydrate cautiously with normal saline at 120 cc/h x 2 L only. Watch for withdrawal symptoms. Regular diet. Treat treat other associated empirically. Seizure precautions. Monitor closely. Further plans to be adjusted as clinically evolves. See my orders for more details. Anticipate discharge tomorrow morning. PDMP PDMP Reviewed: Not Reviewed Attestations 2 Medical Necessity Statement*: N/A. Coding Level of Care Code 55308 Diagnoses Narcosis R06.89 Altered mental status R41.82 Polysubstance abuse F19.10
--- NOTE | 2025-01-07 18:37 | PC.NURSE ---
Pt removed his IV and has pleasantly refused another IV.
--- NOTE | 2025-01-07 18:38 | PC.NURSE ---
PT removed BP cuff and ekg wires. Dr. mcintosh. Will spot check vitals
[2025-01-08] VITALS (34 sets, daily range): BP systolic 90–118; BP diastolic 41–67; PULSE 50–86; RESP 8–24; TEMP 36.4; O2SAT 90–97
[2025-01-08 02:40] LABS: Glucose Urine UA Negative (Normal); Nitrate Urine Negative (Negative); Specific Gravity, Urine 1.022 (1.005-1.030)
[2025-01-08 02:45] LABS: Add Urine Microscopic? YES
[2025-01-08 02:46] LABS: PCP Screen Urine Negative (Negative)
[2025-01-08 05:17] LABS: Anion Gap 12.5 (5-19); Blood Urea Nitrogen 12 mg/dL (6-20); Calcium 7.6 mg/dL (8.5-10.5); Carbon Dioxide 23 mmol/L (22-29); Chloride 110 mmol/L (98-107); Glucose 80 mg/dL (65-115); Magnesium 1.7 mg/dL (1.7-2.3); Osmolality Calculated 293 mOsm/kg (285-295); Potassium 3.5 mmol/L (3.5-5.1); Sodium 142 mmol/L (136-145)
--- NOTE | 2025-01-08 07:16 | PC.NURSE ---
Patient asking questions as to why he is in the hospital and whether his parents are aware of his hospitalization. Information relayed as to his admission as well as previous communication with his parents. Patient then asked the same questions over multiple times despite information discussed. Patient able to correctly state name, birthday, location, and time. Patient then stated he wished to speak to his mom. Call attempted unsuccessfully with Bisi, mother. Patient removed all vital sign monitoring stating he did not need it. Patient informed of potential time of doctor visit today as well as possible discharge today. Patient stated he would wait to see the doctor before making any decisions regarding leaving the hospital.
--- NOTE | 2025-01-08 07:59 | PC.NURSE ---
Patient very restless and agitated, patient can answer questions appropriately. Patient continues to pace the halls and wants to call his mom. Nurse has attempted to contact mother multiple times this morning, staff gave patient breakfast and decaf coffee and multiple attempts to redirect patient back to room. Contacted Dr. Kong about patient wanting to leave, Dr. Kong said he would be down this morning to DC patient. Staff continues to redirect patient and removed all IV lines.
--- NOTE | 2025-01-08 08:04 | PC.NURSE ---
This nurse tried to complete patient's assessment. Patient stated, I don't feel like talking.
--- NOTE | 2025-01-08 09:36 | PM.DCS ---
Discharge Providers Date of Admission: 01/07/25 14:42 Date of Discharge: January 08, 2025 Attending Provider at Admission: Andrew Anne MD Attending Provider at Discharge: Andrew Anne MD Diagnoses at Discharge Discharge Diagnosis 1. Narcosis: 2. Altered mental status: 3. Polysubstance abuse: Reason for Visit Reason for Visit: possible overdose Brief History: Patient was presented to the ER with apparent altered mental status. We confirmed this to be due to abuse of some nonprescribed benzodiazepines. Hospital Course Hospital Course He was monitored in the ICU, while symptoms greatly resolved. As of this morning, patient was back to baseline, and therefore requested for discharge. Physical Exam Narrative: General: Awake and alert patient. Resp: No obvious respiratory distress or difficulty breathing. Skin: No obvious rashes or new skin lesions. All other physical findings essentially within normal limits. Discharge Data Studies Completed and Pending Completed Studies During Hospitalization Category Date Time Status XR chest 1V portable [id number] Stat Exams 01/07/25 10:55 Completed Radiology Impressions Chest X-Ray 01/07/25 10:55 IMPRESSION: Stable chest without acute abnormality. Vitals Last Vital Signs Temp 97.5 F L 01/08/25 06:30 Pulse 77 01/08/25 06:30 Resp 11 L 01/08/25 06:15 BP 90/41 01/08/25 07:15 Pulse Ox 97 01/08/25 06:15 O2 Del Method Room Air 01/08/25 06:15 Discharge Plan Discharge Patient Disposition: Home Condition: Stable Prescriptions: Continued clonidine HCl 0.1 mg tablet 0.1 mg PO BID Qty: 60 3RF Rx Instructions: May take one tablet twice per day as needed for opioid withdrawal buprenorphine-naloxone 2-0.5 mg Film 1 film sublingual DAILY PRN (Reason: severe withdrawal symptoms) 30 Days Qty: 30 0RF quetiapine [Seroquel] 50 mg tablet 50 mg PO BID PRN (Reason: anxiety) Qty: 60 1RF Rx Instructions: May take one tablet twice per day as needed for anxiety Discharge Order = DC NOW: Discharge Order (Routine); Ordered 01/08/25 Ordered By: Andrew Anne Referrals: [facility] [Outside] Referral Note: return to [facility] Discharge Diet: Usual diet Discharge Activity: Resume usual activity Patient Instructions: Altered Mental Status (GEN), Opioid Safety, Patient Portal & [facility] Instructions Activity Restrictions/Additional Instructions: Follow up with your PCP and other providers as already scheduled or as needed. Also, follow up with the out-patient drug rehab facility/agency withing the next 1-2 days or as already scheduled. Discharge Attestations Time Spent in Discharge Care*: less than 30 min Quality Metrics Clinical Quality Measures [ No reported AMI, CVA or VTE this stay] Coding Level of Care Code Acute Code for Chg Fwd Diagnoses Narcosis R06.89 Altered mental status R41.82 Polysubstance abuse F19.10
--- NOTE | 2025-01-08 10:47 | PC.NURSE ---
Discharge paperwork discussed with patient. All lines were removed. All belongings were returned to patient. Patient refused wheelchair at discharge. Patient ambulated to main entrance with [facility] staff at 1045.
== END 2025-01-08 10:45 | disposition home or self-care (01) ==
LOC: ER 14:24 → ICU 14:42
PROVIDERS: Admitting Provider Family Medicine; Emergency Provider Family Medicine; Visit Provider Family Medicine
DX: R41.82 Altered mental status, unspecified (principal); R06.89 Other abnormalities of breathing; F19.10 Other psychoactive substance abuse, uncomplicated; F17.200 Nicotine dependence, unspecified, uncomplicated; F15.11 Other stimulant abuse, in remission
CPT/HCPCS: 36415; 71045; 80048; 80053; 80306; 80307; 81001; 83735; 84443; 85025; 96361; 96374; 99285; 99291; G0378; J2312; J7030; J9999